=== PATIENT | female | born 1955 | race Caucasian/White ===

== ENCOUNTER 2020-02-24 09:52 | Outpatient (CLI) | payer MEDICARE, SELFPAY ==
--- NOTE | ~2020-02-24 | MM_ITS ---
EXAMINATION: MM screening josias BI w stuart HISTORY: Screening TECHNIQUE: Craniocaudal and mediolateral oblique 3-D tomosynthesis images were obtained and synthetic 2-D images were generated. CAD analysis was submitted and interpreted. COMPARISON: Comparison to multiple prior studies sequentially, with oldest reviewed study dated 08/07. BREAST PARENCHYMAL COMPOSITION: There are scattered areas of fibroglandular density. FINDINGS: There is no evidence of suspicious mass, calcification, or architectural distortion to sugg est malignancy in either breast. There has been no suspicious interval change. IMPRESSION: 1. No mammographic evidence of malignancy. 2. Recommend routine screening mammography in one year. BI-RADS Category 1: Negative Reviewed, dictated and finalized at location A.
== END 2020-02-24 09:53 | disposition home or self-care (01) ==
PROVIDERS: PCP Family Medicine; Visit Provider Family Medicine
DX: Z12.31 Encounter for screening mammogram for malignant neoplasm of breast (principal)
CPT/HCPCS: 77063; 77067

== ENCOUNTER → 2020-04-08 15:32 | Outpatient (REF) | payer MEDICARE, SELFPAY | LOC: ANHLAB 15:32 | PROVIDERS: PCP Family Medicine; Visit Provider Nurse Practitioner | DX: D22.5 Melanocytic nevi of trunk (principal) | CPT/HCPCS: 88305; 88342 ==

== ENCOUNTER 2020-07-28 13:42 | Outpatient (CLI) | payer MEDICARE, SELFPAY ==
--- NOTE | ~2020-07-28 | CT_ITS ---
EXAMINATION: CT lung screening EXAM DATE: 07/28/2020 14:28 INDICATION: Personal history of nicotine dependence. TECHNIQUE: Spiral low dose CT of the chest without contrast. Axial, coronal and sagittal images were reviewed. The dose-length product (DLP) for this examination was 64.29 mGy-cm. The exposure was ta ilored according to patient size (auto mA exposure control), and iterative reconstruction (ASIR) was used as additional dose reduction technique. Comparison is made to prior examination from 10/21/2018. FINDINGS: There is mild emphysema and moderate hyperinflation. Small amount of endobronchial opacit y in right apical subsegmental bronchi, unchanged and probably endobronchial debris. New small amount of opacity in right lower lobe posterior subsegmental bronchi also most likely mucous. There is no mediastinal, hilar or axillary lymphadenopathy. There are no pleural or pericardial effusions. Th ere is no pneumothorax. Heart normal in size. No evidence of coronary arterial calcification. Upper abdomen is unremarkable. There is thoracic spondylosis without osteoblastic or osteolytic les ions identified. IMPRESSION: Lung-RADS category 1, negative (<1%chance of malignancy); recommend continued LDCT screen ing in 1 year. Reviewed, dictated and finalized at location B. ER IMPRESSION: Lung-RADS category 1, negative (<1%chance of malignancy); recommend continued LDCT screening in 1 year.
== END 2020-07-28 13:43 | disposition home or self-care (01) ==
PROVIDERS: PCP Family Medicine; Visit Provider Physician Assistant
DX: Z12.2 Encounter for screening for malignant neoplasm of respiratory organs (principal); Z87.891 Personal history of nicotine dependence
CPT/HCPCS: 71271

== ENCOUNTER 2020-10-05 14:03 | Outpatient (CLI) | payer MEDICARE, SELFPAY ==
--- NOTE | ~2020-10-05 | US_ITS ---
EXAMINATION: US soft tissue head and neck EXAM DATE: 10/05/2020 14:35 INDICATION: Goiter. TECHNIQUE: Multiple grayscale and Doppler images of the symptomatic neck region were obtained (by a t echnologist who performed the scan) and subsequently reviewed. Individual thyroid nodules and recomm endations may be reported in accordance with TI-RADS system as designated by the 2017 ACR White Paper TI-RADS committee. There is no prior study for comparison. FINDINGS: The right there are lobe measures 3.9 x 1.4 x 1.9 cm, the left measuring 4.3 x 1.3 x 1.2 cm. These me asurements are within normal size limits. There is diffusely heterogeneous thyroid parenchyma with hy pervascular parenchyma. No sizable focal thyroid nodule or other mass in the region identified. IMPRESSION: Heterogeneous hypervascular thyroid parenchyma within normal size limits. Reviewed, dictated and finalized at location A. IMPRESSION: Heterogeneous hypervascular thyroid parenchyma within normal size l imits.
== END 2020-10-05 14:04 | disposition home or self-care (01) ==
PROVIDERS: PCP Family Medicine; Visit Provider Internal Medicine Endocrinology, Diabetes & Metabolism
DX: E03.9 Hypothyroidism, unspecified (principal); M81.0 Age-related osteoporosis without current pathological fracture
CPT/HCPCS: 76536

== ENCOUNTER 2020-11-01 12:52 | Outpatient (CLI) | payer MEDICARE, SELFPAY ==
--- NOTE | ~2020-11-01 | DEXA_ITS ---
Bone Density Report Name: Arabella Zamora Age: 64 Sex: Female Ethnicity: White Date of : 1955 Indication: hyperparathyroidism; prior fracture; Referring Provider: Brendon, Marilee Agee Study: Bone densitometry was performed. Exam Date: November 01, 2020 Accession number: [id number] Bone Density: Region BMD T-score Z-score Classification Total Forearm (Left) 0.371 -3.8 -2.0 1/3 Forearm (Left) 0.478 -3.5 -1.8 UD Forearm (Left) 0.350 -1.2 0.1 World Health Organization criteria for BMD impression classify patients as: Normal (T-score at or above -1.0), Osteopenia (T-score between -1.0 and -2.5), or Osteoporosis (T-score at or below -2.5). Clinical Information Provided by Patient: Has had a low trauma fracture Smokes Is being treated for osteoporosis Has used the following medications: Fosamax (i.e. alendronate), Vitamin D, Calcium Has the following medical conditions: Hyperparathyroidism Patient maximum height was 66 Menopause Age: 49 No regular weight bearing exercise Does not regularly consume dairy products Drinks caffeinated beverages Onset of menses at age 11 Number of children 2 Impression: The patient has established osteoporosis, based on the Left Third Radius T-score and the existence of a prior fracture. The patient has risk factors, including: smoking, previous fracture. Discussion: It is important to ask patients whether they are taking their medications and to encourage continued and appropriate compliance with their osteoporosis therapies to reduce fracture risk. It is also important to review their risk factors and encourage appropriate calcium and vitamin D intakes, exercise, fall prevention and other lifestyle measures. Follow-Up: Consider a repeat BMD and Vertebral Fracture Assessment (VFA) exam in 2 years or sooner if medically necessary, to reassess this patient's status. Reported by: [facility] on 11/01/2020 1:58:00 PM. Reviewed, dictated and finalized at location ANakia FREIRE
--- NOTE | ~2020-11-01 | DEXA_ITS ---
Bone Density Report Name: Arabella Zamora Age: 64 Sex: Female Ethnicity: White Date of : 1955 Indication: postmenopausal osteoporosis; monitoring treatment; hyperparathyroidism; prior fracture; Referring Provider: Brendon, Marilee Agee Study: Bone densitometry was performed. Exam Date: November 01, 2020 Accession number: [id number] Bone Density: Region BMD T-score Z-score Classification AP Spine (L1-L4) 0.712 -3.0 -1.2 Osteoporosis Femoral Neck (Left) 0.468 -3.4 -1.9 Osteoporosis Total Hip (Left) 0.755 -1.5 -0.3 Osteopenia Total Hip Bilateral Avg 0.705 -2.0 -0.7 Osteopenia Femoral Neck (Right) 0.428 -3.8 -2.2 Osteoporosis Total Hip (Right) 0.654 -2.4 -1.1 Osteopenia World Health Organization criteria for BMD impression classify patients as: Normal (T-score at or above -1.0), Osteopenia (T-score between -1.0 and -2.5), or Osteoporosis (T-score at or below -2.5). 10-year Fracture Risk: FRAX not reported because: Some T-score for Spine Total or Hip Total or Femoral Neck at or below -2.5 Treated for osteoporosis Previous Exams: Region Exam Age BMD T-score BMD Change BMD Change Date g/cm2 vs Baseline vs Previous AP Spine(L1-L4) 11/01/2020 64 0.712 -3.0 0.008(1.1%) 0.008(1.1%) 10/11/2017 61 0.704 -3.1 Total Hip(Left) 11/01/2020 64 0.755 -1.5 0.015(2.1%) 0.015(2.1%) 10/11/2017 61 0.740 -1.7 Total Hip(Right) 11/01/2020 64 0.654 -2.4 -0.014(-2.1%) -0.014(-2.1%) 10/11/2017 61 0.668 -2.2 *Denotes significance at 95% confidence level, LSC for AP Spine = 0.022 g/cm2, LSC for Total Hip = 0.027 g/cm2 Clinical Information Provided by Patient: Has had a low trauma fracture Smokes Is being treated for osteoporosis Has used the following medications: Fosamax (i.e. alendronate), Vitamin D, Calcium Has the following medical conditions: Hyperparathyroidism Patient maximum height was 66 Menopause Age: 49 No regular weight bearing exercise Does not regularly consume dairy products Drinks caffeinated beverages Onset of menses at age 11 Number of children 2 Impression: The patient has established osteoporosis, based on the Right Femoral Neck T-score and the existence of a prior fracture. The patient has risk factors, including: smoking, previous fracture. No significant bone loss was observed. Discussion: PATIENT UNDER TREATMENT WITH NO SIGNIFICANT BMD LOSS SINCE LAST EXAM. In an untreated patient, BMD typically declines with age. A lack of dec
== END 2020-11-01 12:53 | disposition home or self-care (01) ==
PROVIDERS: PCP Family Medicine; Visit Provider Internal Medicine Endocrinology, Diabetes & Metabolism
DX: M81.0 Age-related osteoporosis without current pathological fracture (principal)
CPT/HCPCS: 77080; 77081

== ENCOUNTER 2021-03-15 12:43 | Outpatient (CLI) | payer MEDICARE, SELFPAY ==
--- NOTE | ~2021-03-15 | MM_ITS ---
EXAMINATION: MM screening [facility] BI w stuart HISTORY: Screening mammogram TECHNIQUE: Craniocaudal and mediolateral oblique 3-D tomosynthesis images were obtained and synthetic 2-D images were generated. CAD analysis was submitted and interpreted. COMPARISON: 02/24/2020 10/18/2018, 10/11/2017 BREAST PARENCHYMAL COMPOSITION: The breasts are almost entirely fatty. FINDINGS: RIGHT BREAST: A mass is present in the middle third of the lower-outer breast approximately 3.8 cm fr om the nipple. LEFT BREAST: There is no evidence of suspicious mass, calcification, or architectural distortion to s uggest malignancy. There has been no significant interval change. IMPRESSION: 1. Right breast mass. 2. Additional mammographic views and possible breast ultrasound are recommended. BI-RADS Category 0: Incomplete: Needs additional imaging evaluation. Reviewed, dictated and finalized at location A. IMPRESSION: 1. Right breast mass. 2. Additional mammographic views and possible breast ultrasound are recommended . BI-RADS Category 0: Incomplete: Needs additional imaging evaluation.
== END 2021-03-15 12:44 | disposition home or self-care (01) ==
LOC: ANHIMG 12:48
PROVIDERS: PCP Family Medicine; Visit Provider Family Medicine
DX: Z12.31 Encounter for screening mammogram for malignant neoplasm of breast (principal); R92.8 Other abnormal and inconclusive findings on diagnostic imaging of breast
CPT/HCPCS: 77063; 77067

== ENCOUNTER 2021-03-25 13:48 | Outpatient (CLI) | payer MEDICARE, SELFPAY ==
--- NOTE | ~2021-03-25 | MMUS_ITS ---
EXAMINATION: MM diagnostic josias RT w stuart, US breast RT limited HISTORY: Follow-up right breast mass TECHNIQUE: Additional 3-D tomosynthesis images of the right breast were performed and synthetic 2-D i mages were generated. CAD analysis was submitted and interpreted. High resolution Limited right breas t ultrasound was performed. COMPARISON: Comparison to multiple prior studies sequentially, with oldest reviewed study dated 09/14. BREAST PARENCHYMAL COMPOSITION: BREAST PARENCHYMAL COMPOSITION: There are scattered areas of fibroglandular density. FINDINGS: MAMMOGRAPHIC FINDINGS: There is a mass in the lower outer quadrant of the right breast anteriorly measuring approximately 4 mm. No suspicious calcifications or architectural distortion. ULTRASOUND: Limited right breast ultrasound: At 8:00, near the nipple there is a 4 mm cyst corresponding to the m ammographic abnormality. There are multiple additional cysts of the right breast, largest in the suba reolar location at 6:00 measuring 1.4 cm maximum dimension. No solid masses. IMPRESSION: 1. No evidence for malignancy in the right breast. Benign findings. 2. Routine yearly screening mammogram and regular clinical breast examination are recommended. BI-RADS Category 2: Benign finding(s). Reviewed, dictated and finalized at location A. IMPRESSION: 1. No evidence for malignancy in the right breast. Benign findings. 2. Routine yearly screening mammogram and regular clinical breast examination a re recommended. BI-RADS Category 2: Benign finding(s).
== END 2021-03-25 13:49 | disposition home or self-care (01) ==
LOC: ANHIMG 13:50
PROVIDERS: PCP Family Medicine; Visit Provider Family Medicine
DX: R92.8 Other abnormal and inconclusive findings on diagnostic imaging of breast (principal)
CPT/HCPCS: 76642; 77061; 77065; G0279

== ENCOUNTER 2021-11-02 12:23 | Outpatient (CLI) | payer MEDICARE, SELFPAY ==
--- NOTE | ~2021-11-02 | CT_ITS ---
EXAMINATION: CT lung screening DATE: 11/02/2021 13:10 INDICATION: Personal history of nicotine dependence, current smoker with 30 pack year history TECHNIQUE: Computed tomography (CT) of the chest was performed without intravenous contrast. The dose -length product (DLP) was 61.85 mGy-cm. Automated exposure control and iterative reconstruction techn [employer] were employed. COMPARISON: 07/28/2020 FINDINGS: There is moderate emphysema. No suspicious pulmonary nodules are identified. There is no pl eural effusion or pneumothorax. No focal airspace opacities are identified. No pathologically enlarge d thoracic lymph nodes are identified. The heart size is normal. IMPRESSION: 1. Lung-RADS category 1: Negative. Continue annual screening with noncontrast low-dose chest CT in 12 months. Reviewed, dictated and finalized at location A. IMPRESSION: 1. Lung-RADS category 1: Negative. Continue annual screening with noncontrast l ow-dose chest CT in 12 months.
== END 2021-11-02 12:24 | disposition home or self-care (01) ==
PROVIDERS: PCP Family Medicine; Visit Provider Physician Assistant
DX: Z12.2 Encounter for screening for malignant neoplasm of respiratory organs (principal); Z87.891 Personal history of nicotine dependence
CPT/HCPCS: 71271

== ENCOUNTER → 2021-11-10 10:14 | Outpatient (CLI) | payer MEDICARE, SELFPAY ==
--- NOTE | ~2021-11-10 | DEXA_ITS ---
Bone Density Report Name: LASHA DIAZ Age: 65 Sex: Female Ethnicity: White Date of : 1955 Indication: postmenopausal; screening for osteoporosis; prior fracture; Referring Provider: Brendon, Marilee Agee Study: Bone densitometry was performed. Exam Date: November 10, 2021 Accession number: [id number] Bone Density: Region BMD T-score Z-score Classification AP Spine (L1-L4) 0.718 -3.0 -1.1 Osteoporosis Femoral Neck (Left) 0.482 -3.3 -1.7 Osteoporosis Total Hip (Left) 0.717 -1.8 -0.5 Osteopenia Femoral Neck (Right) 0.464 -3.5 -1.9 Osteoporosis Total Hip (Right) 0.670 -2.2 -0.9 Osteopenia Total Hip Mean 0.694 -2.0 -0.7 Osteopenia World Health Organization criteria for BMD impression classify patients as: Normal (T-score at or above -1.0), Osteopenia (T-score between -1.0 and -2.5), or Osteoporosis (T-score at or below -2.5). 10-year Fracture Risk: FRAX not reported because: Some T-score for Spine Total or Hip Total or Femoral Neck at or below -2.5 Prior hip or vertebral fracture Clinical Information Provided by Patient: Have had a previous hip or vertebral fracture Has had a low trauma fracture Smokes Patient maximum height was 66 Menopause Age: 49 Drinks caffeinated beverages Onset of menses at age 11 Number of children 2 Impression: The patient has established osteoporosis, based on the Right Femoral Neck T-score and the existence of a prior fracture. The patient has risk factors, including: smoking, previous fracture. Discussion: HIGH RISK OF FRACTURE. BONE DENSITY IS UNDESIRABLY LOW AT ONE OR MORE SKELETAL SITES, CONSISTENT WITH POSTMENOPAUSAL OSTEOPOROSIS. This patient's lowest T-score, in a patient who has previously fractured, meets the World Health Organization's (WHO) criteria for severe osteoporosis. In untreated patients, the risk of osteoporotic fracture increases approximately two-fold for each 1.0 SD decrease in T-score. Low bone density is not the only risk factor for fracture; also consider factors such as patient's age, frailty or poor health, risk of falling, risk of injury, previous osteoporotic fracture, family history of osteoporosis, cigarette smoking, low body weight, etc. Not everyone with low bone mineral density has osteoporosis; osteomalacia and other metabolic bone disorders should also be considered. Patients who have osteoporosis should be evaluated for specific diseases and conditions (secondary causes) that may cause or contribute to bone loss. The [place] [employer] Endocrinologists (AACE) and National Osteoporosis Foundation (NOF) recommend pharmacologic intervention for all postmenopausal women with a previous hip or vertebral fracture and a T-score in this range. The patient should follow a healthful lifestyle (good nutrition with adequate calcium and vitamin D, an
== END ==
PROVIDERS: PCP Family Medicine; Visit Provider Internal Medicine Endocrinology, Diabetes & Metabolism
DX: M81.0 Age-related osteoporosis without current pathological fracture (principal)
CPT/HCPCS: 77080

== ENCOUNTER 2022-04-26 09:48 | Outpatient (CLI) | payer MEDICARE, SELFPAY ==
--- NOTE | ~2022-04-26 | MM_ITS ---
EXAMINATION: MM screening josias BI w stuart HISTORY: Screening TECHNIQUE: Craniocaudal and mediolateral oblique 3-D tomosynthesis images were obtained and synthetic 2-D images were generated. CAD analysis was submitted and interpreted. COMPARISON: Comparison to multiple prior studies sequentially, with oldest reviewed study dated 09/20. BREAST PARENCHYMAL COMPOSITION: There are scattered areas of fibroglandular density. FINDINGS: There is no evidence of suspicious mass, calcification, or architectural distortion to sugg est malignancy in either breast. There has been no suspicious interval change. IMPRESSION: 1. No mammographic evidence of malignancy. 2. Recommend routine screening mammography in one year. BI-RADS Category 1: Negative Reviewed, dictated and finalized at location A.
== END 2022-04-26 09:49 | disposition home or self-care (01) ==
PROVIDERS: PCP Family Medicine; Visit Provider Family Medicine
DX: Z12.31 Encounter for screening mammogram for malignant neoplasm of breast (principal)
CPT/HCPCS: 77063; 77067

== ENCOUNTER 2023-03-27 14:32 | Outpatient (CLI) | payer MEDICARE, SELFPAY ==
--- NOTE | ~2023-03-27 | CT_ITS ---
CT Scan of the Chest without Contrast: Clinical Indication: Lung cancer screening, personal history of nicotine dependence Technique: Contiguous sections were acquired throughout the chest without intravenous contrast. Dose reduction technique was used on this scan by utilizing automated exposure control and iterative recon struction technique. The dose-length product (DLP) was 69.52 mGy-cm. COMPARISON: 11/02/2021, 07/28/2020 Findings: There is no evidence of any significant mediastinal, hilar or axillary lymphadenopathy. The mediastin al soft tissues appear normal. There is no evidence of pleural or pericardial effusion. There is linear scarring at the left lung base. No pulmonary nodules or infiltrates are noted. Mild e mphysema present. Images through the upper abdomen reveal no abnormalities. Chronic compression deformity of L2 noted. Impression: Lung RADS 1: Negative. 12 month follow-up screening CT advised. Reviewed, dictated and finalized at [facility]. Impression: Lung RADS 1: Negative. 12 month follow-up screening CT advised.
== END 2023-03-27 14:33 | disposition home or self-care (01) ==
PROVIDERS: PCP Family Medicine; Visit Provider Nurse Practitioner
DX: Z12.2 Encounter for screening for malignant neoplasm of respiratory organs (principal); Z87.891 Personal history of nicotine dependence
CPT/HCPCS: 71271

== ENCOUNTER 2023-05-12 12:34 | Emergency (ER) | payer MEDICARE, SELFPAY ==
[2023-05-12 13:08] VITALS: BP 137/92; PULSE 77; RESP 16; TEMP 36.5; O2SAT 97
--- NOTE | 2023-05-12 13:29 | ED.EAR ---
HPI - Ear Problem General Chief complaint: Ear Stated complaint: L EARACHE Time Seen by Provider: 05/12/23 13:29 Source: patient Mode of arrival: ambulatory Limitations: no limitations History of Present Illness HPI Narrative: 67-year-old female presented for complaint of left ear pressure, muffled hearing and popping sounds over the past week. She states symptoms started while on an airplane. She started using Flonase a few days ago with minimal relief. Patient states [place] few months [place] Flonase which resolved the symptoms at the time. Denies ear pain, tinnitus, ear drainage, dizziness, nausea, vomiting, fevers or chills. MD Complaint: ear pain Related Data Home Medications Medication Instructions Recorded Confirmed cholecalciferol (vitamin D3) 75 75 mcg PO DAILY 02/14/22 05/12/23 mcg (3,000 unit) tablet denosumab 60 mg/mL subcutaneous 60 mg subcut [id number] 03/15/23 05/12/23 syringe (Prolia) Allergies Allergy/AdvReac Type Severity Reaction Status Date / Time Iodinated Contrast Media Allergy Mild Hives Verified 05/12/23 13:02 ioversol Allergy Unknown Unknown Verified 05/12/23 13:02 Review of Systems Review of Systems: CONSTITUTIONAL: Denies malaise, chills, or fever. EYES: Denies visual changes, redness, or discharge. ENT: Denies rhinorrhea, congestion, sinus pain, and sore throat. Reports ear popping and hearing changes CARDIOVASCULAR: Denies chest pain, palpitations, or edema. RESPIRATORY: Denies cough or dyspnea. GASTROINTESTINAL: Denies abdominal pain, nausea, vomiting, diarrhea SKIN: Denies rash or itching. MUSCULOSKELETAL: Denies myalgia. NEUROLOGIC: Denies headache. All systems reviewed & are unremarkable except as noted in HPI and below PMFSH Past Medical History Medical History Cyst (~1971) Surgical History Surgical History H/O breast biopsy (~1981) H/O colonoscopy (~12/2015) History of biopsy of bladder (~1972) History of lumpectomy (~01/2010) Family History Family History Mother Family history of malignant melanoma Patient's mother is , Onset Age: 68 Sibling Acute myocardial infarction, Onset Age: 59 Family history of cardiovascular disease Hypertension Family history of elevated blood lipids Family history of coronary artery disease Grandparent Carcinoma of colon Family history of coronary artery disease Father Family history of malignant neoplasm of kidney Social History Social History Smoking status: Current every day smoker Tobacco type: cigarettes Alcohol intake: never Substance use: never Substance use type: does not use Lack of Transportation: No Lack of Food: Never True Current Housing: I Have Housing Concerned About Future Housing: No Difficulty Paying Gas/Electric Bills: No Difficulty Paying for Meds: No Currently Unemployed: No Education: Bachelor's Degree Difficulty w/ Childcare or Family Care: No Comments At time of signature, agree with nursing past medical, surgical, social and family history. There is no relevant family history pertinent to the presenting complaint Exam Narrative: GENERAL: Well-appearing, and in no acute distress. HEAD: Normocephalic EYES: PERRLA, conjunctivae clear ENT: Mucous membranes moist. right TM pearly ayala with dull light reflex; left TM with clear fusion, bulging and intact, no erythema, no tragal tenderness. Oropharynx not erythematous without lesions. no drooling, no hoarseness, no trismus, uvula midline. NECK: Supple. No lymphadenopathy CHEST: Clear to auscultation, breath sounds equal. No wheezing, rhonchi, rales, or stridor. No respiratory distress, speaks in full sentences. HEART: Regular rate and rhyth
== END 2023-05-12 13:48 | disposition home or self-care (01) ==
PROVIDERS: Emergency Provider Nurse Practitioner Family; PCP Family Medicine
DX: H65.02 Acute serous otitis media, left ear (principal); F17.210 Nicotine dependence, cigarettes, uncomplicated
CPT/HCPCS: 99213; G0463

== ENCOUNTER 2023-07-17 14:17 | Outpatient (CLI) | payer MEDICARE, SELFPAY ==
--- NOTE | ~2023-07-17 | MM_ITS ---
EXAMINATION: MM screening [facility] BI w stuart HISTORY: Screening mammogram TECHNIQUE: Craniocaudal and mediolateral oblique 3-D tomosynthesis images were obtained and synthetic 2-D images were generated. CAD analysis was submitted and interpreted. COMPARISON: 04/26/2022, 03/25/2021, 03/15/2021, 02/24/2020 BREAST PARENCHYMAL COMPOSITION: There are scattered areas of fibroglandular density. FINDINGS: RIGHT BREAST: There are waxing and waning right breast masses, consistent with benign findings. No strickland spicious mass, calcification, or architectural distortion are identified to suggest malignancy. There has been no suspicious interval change. LEFT BREAST: There is a 4 mm mass in the middle third of the lower breast at the 6:00 location, 7 cm from the nipple. IMPRESSION: 1. Left breast mass. 2. Additional mammographic views and possible breast ultrasound are recommended. BI-RADS Category 0: Incomplete: Needs additional imaging evaluation. Reviewed, dictated and finalized at location A. [employer]OUNT TECHNOLOGY OPERATOR IMPRESSION: 1. Left breast mass. 2. Additional mammographic views and possible breast ultrasound are recommended . BI-RADS Category 0: Incomplete: Needs additional imaging evaluation.
== END 2023-07-17 14:18 | disposition home or self-care (01) ==
PROVIDERS: PCP Family Medicine; Visit Provider Nurse Practitioner
DX: Z12.31 Encounter for screening mammogram for malignant neoplasm of breast (principal); R92.8 Other abnormal and inconclusive findings on diagnostic imaging of breast
CPT/HCPCS: 77063; 77067

== ENCOUNTER 2023-08-16 10:43 | Outpatient (CLI) | payer MEDICARE, SELFPAY ==
--- NOTE | ~2023-08-16 | MMUS_ITS ---
EXAMINATION: MM diagnostic josias LT w stuart, US breast LT limited HISTORY: Follow-up left breast mass TECHNIQUE: Additional 3-D tomosynthesis images of the left breast were performed and synthetic 2-D im ages were generated. CAD analysis was submitted and interpreted. High resolution Limited left breast ultrasound was performed. COMPARISON: Comparison to multiple prior studies sequentially, with oldest reviewed study dated 10/18. BREAST PARENCHYMAL COMPOSITION: Not dense: There are scattered areas of fibroglandular density. FINDINGS: MAMMOGRAPHIC FINDINGS: There is a persistent circumscribed 5 mm mass in the lower central aspect of the left breast. There a re coarse benign calcifications of the left breast. ULTRASOUND: Limited left breast ultrasound: There is an echogenic focus at 9:00, 5 cm from the nipple with risk professional ior shadowing, consistent with calcification. At 8:00, 4 cm from the nipple there is a 5 mm cyst. At 7:00, 3 cm from the nipple, there is a 5 mm cyst. At 6:00, 7 cm from the nipple, there is a 6 mm cyst . IMPRESSION: 1. No evidence for malignancy in the left breast. 2. Routine yearly screening mammogram and regular clinical breast examination are recommended. BI-RADS Category 2: Benign finding(s). Reviewed, dictated and finalized at location A. BAKER MACHINE IMPRESSION: 1. No evidence for malignancy in the left breast. 2. Routine yearly screening mammogram and regular clinical breast examination a re recommended. BI-RADS Category 2: Benign finding(s).
== END 2023-08-16 10:44 | disposition home or self-care (01) ==
PROVIDERS: PCP Family Medicine; Visit Provider Nurse Practitioner
DX: N63.20 Unspecified lump in the left breast, unspecified quadrant (principal); R92.8 Other abnormal and inconclusive findings on diagnostic imaging of breast
CPT/HCPCS: 76642; 77061; 77065; G0279

== ENCOUNTER 2023-11-13 11:08 | Outpatient (CLI) | payer MEDICARE, SELFPAY ==
--- NOTE | ~2023-11-13 | DEXA_ITS ---
Bone Density Report Name: LASHA DIAZ Age: 67 Sex: Female Ethnicity: White Date of : 1955 Indication: postmenopausal osteoporosis; prior fracture; Referring Provider: YESENIA ZARATE Study: Bone densitometry was performed. Exam Date: November 13, 2023 Accession number: [id number] Bone Density: Region BMD T-score Z-score Classification AP Spine(L1-L4) 0.769 -2.5 -0.5 Osteoporosis Femoral Neck (Left) 0.563 -2.6 -0.8 Osteoporosis Total Hip (Left) 0.780 -1.3 0.1 Osteopenia Femoral Neck (Right) 0.485 -3.3 -1.6 Osteoporosis Total Hip (Right) 0.745 -1.6 -0.2 Osteopenia Total Hip Mean 0.762 -1.5 -0.1 Osteopenia World Health Organization criteria for BMD impression classify patients as: Normal (T-score at or above -1.0), Osteopenia (T-score between -1.0 and -2.5), or Osteoporosis (T-score at or below -2.5). 10-year Fracture Risk: FRAX not reported because: Some T-score for Spine Total or Hip Total or Femoral Neck at or below -2.5 Prior hip or vertebral fracture Previous Exams: Region Exam Age BMD T-score BMD Change BMD Change Date g/cm2 vs Baseline vs Previous AP Spine (L1-L4) 11/13/2023 67 0.769 -2.5 0.065 (9.2%)* 0.057 (8.0%)* 11/01/2020 64 0.712 -3.0 0.008 (1.1%) 0.008 (1.1%) 10/11/2017 61 0.704 -3.1 Total Hip(Left) 11/13/2023 67 0.780 -1.3 0.040 (5.4%)* 0.024 (3.2%) 11/01/2020 64 0.755 -1.5 0.015 (2.1%) 0.015 (2.1%) 10/11/2017 61 0.740 -1.7 Total Hip(Right) 11/13/2023 67 0.745 -1.6 0.077 (11.6%)* 0.091 (14.0%)* 11/01/2020 64 0.654 -2.4 -0.014 (-2.1%) -0.014 (-2.1%) 10/11/2017 61 0.668 -2.2 *Denotes significance at 95% confidence level, LSC for AP Spine = 0.022 g/cm2, LSC for Total Hip = 0.027 g/cm2 Clinical Information Provided by Patient: Have had a previous hip or vertebral fracture Has had a low trauma fracture Smokes Has used the following medications: Prolia (i.e. denosumab), Calcium Patient maximum height was 66.0 Menopause Age: 49 Does not regularly consume dairy products Drinks caffeinated beverages Onset of menses at age 11 Number of children 2 Impression: The patient has established osteoporosis, based on the Right Femoral Neck T-score and the existence of a prior fracture. The patient has risk factors, including: smoking, previous fracture. No significant bone loss was observed. Discussion: HIGH RISK OF FRACTURE. BONE DENSITY IS UNDESIRABLY LOW AT ONE OR MO
== END 2023-11-13 11:09 ==
LOC: ANHIMG 03-18 11:08
PROVIDERS: PCP Family Medicine; Visit Provider Internal Medicine Endocrinology, Diabetes & Metabolism
DX: M81.0 Age-related osteoporosis without current pathological fracture (principal); E03.9 Hypothyroidism, unspecified; M85.852 Other specified disorders of bone density and structure, left thigh; M85.851 Other specified disorders of bone density and structure, right thigh
CPT/HCPCS: 77080

== ENCOUNTER 2024-02-12 15:15 | Outpatient (RCR) | payer MEDICARE, SELFPAY ==
--- NOTE | 2024-01-08 16:04 | OPREHPOC ---
Outpatient Therapy Plan of Care This is a Multidisciplinary Plan of Care that may contain components documented by all disciplines (PT, OT, and ST.) PT Problem 1 PT Problem #1 Knowledge Deficit PT Goal 1 Goal Marion with HEP Target Visit 4 PT Goal 1 Goal Patient will report no increased pain with reaching behind back for bra removal and dressing Target Visit 8 PT Goal 2 Goal Patient will demonstrate 70 degrees of right shoulder internal rotation for full functional shoulder mobility Target Visit 8 PT Goal 1 Goal Improve R shoulder external rotation strength to 5 /5 to improve shoulder stability for ADL performance Target Visit 8
--- NOTE | 2024-01-08 16:04 | PTOPEVAL1 ---
Assessment and note entered by Yuriy Swain, PT Evaluation Information Assessment Status Evaluation ICD-10 Condition Codes (PT) M25.511 Onset November 2023 Subjective Information Reports that she started a steroid back in November. Pain is in R shoulder and occasionally radiated to lateral elbow. Denies any pain at night or with numbness and tingling. Pressure on the shoulder still hurts. She is R handed. Believe that it was first aggravated when she was paining a brick foundation and did a lot of gardening. She is in an exercise class and has avoided use of arms and overhead activity. Reported Pain Level Pain Score 0: Self Report Assessment PT Clinical Summary Patient presents with radicular pain consistent with capsular tendonitis and impingement. Patient has very tight posterior rotator cuff and minor weakness in shoulder stabilization musculature. Patient will benefit from skilled therapy to improve gross shoulder stabilization and improve capsular mobility to reduce pain with self care. Plan of Care Interventions Electrical Stimulation,Hot Pack/Cold Pack,Manual Therapy,Neuro Re-education,Therapeutic Activities, Therapeutic Exercise PT Services Indicated Yes Treatment Frequency and 1-2x/week for 8 visits Duration These treatments will address the objective and functional deficits as defined above. The patient will be advanced safely and appropriately in order for the patient to progress towards his/her prior level of function. Additional exercises will be introduced and as well as a comprehensive home exercise program upon discharge, if needed, ?to ensure carryover of functional gains achieved in the clinic. This treatment plan has been reviewed and agreement upon by the patient.
--- NOTE | 2024-02-12 16:48 | PTOPDC ---
Assessment and note entered by Yuriy Swain, PT Evaluation Information Assessment Status Discharge ICD-10 Condition Codes (PT) M25.511 Onset November 2023 Subjective Information Reports that overall she is significantly better. She feels she is able to work the garden and stretch the front of the shoulder without pain at this point. No concerns with HEP and has been doing it consistently. Reported Pain Level Pain Score 0: Self Report Assessment PT Clinical Summary Patient has met all goals for therapy and is suitable for discharge at this time to [facility]. No concerns with HEP at this time. Plan of Care PT Services Indicated D/C to HEP
--- NOTE | 2024-02-13 09:52 | PCPTNOTE ---
Patient was canceled 02/06/24 due to therapist out with illness.
== END 2024-02-13 10:29 | disposition home or self-care (01) ==
LOC: ANHGOSHPT 15:15
PROVIDERS: PCP Family Medicine; Visit Provider Nurse Practitioner
DX: M25.511 Pain in right shoulder (principal)
CPT/HCPCS: 97110; 97112; 97140; 97161; 97530

== ENCOUNTER 2024-03-31 10:13 | Outpatient (CLI) | payer MEDICARE, SELFPAY ==
--- NOTE | ~2024-03-31 | CT_ITS ---
CT Scan of the Chest without Contrast: Clinical Indication: Lung cancer screening, nicotine dependence Technique: Contiguous sections were acquired throughout the chest without intravenous contrast. Dose reduction technique was used on this scan by utilizing automated exposure control and iterative recon struction technique. The dose-length product (DLP) was 89.56 mGy-cm. COMPARISON: 03/27/2023 Findings: There is no evidence of any significant mediastinal, hilar or axillary lymphadenopathy. The mediastin al soft tissues appear normal. There is no evidence of pleural or pericardial effusion. The lungs are clear. No pulmonary nodules or infiltrates are noted. Mild emphysema. Images through the upper abdomen reveal no abnormalities. Chronic L2 compression deformity noted. Impression: Lung RADS 1: Negative. 12 month follow-up screening CT advised. Reviewed, dictated and finalized at [facility]. Impression: Lung RADS 1: Negative. 12 month follow-up screening CT advised.
== END 2024-03-31 10:14 | disposition home or self-care (01) ==
LOC: GOSHIMG 10:14
PROVIDERS: PCP Family Medicine; Visit Provider Nurse Practitioner
DX: Z12.2 Encounter for screening for malignant neoplasm of respiratory organs (principal); Z87.891 Personal history of nicotine dependence
CPT/HCPCS: 71271

== ENCOUNTER 2024-04-14 12:13 | Emergency (ER) | payer MEDICARE, SELFPAY ==
[2024-04-14 12:14] VITALS: BP 155/95; PULSE 74; RESP 16; TEMP 36.2; O2SAT 95
--- NOTE | 2024-04-14 12:25 | ED.URI ---
HPI - URI/Sore Throat General Chief Complaint: Upper Respiratory Infection Stated Complaint: Sinus Infection Symptoms Time Seen by Provider: 04/14/24 12:25 Source: patient Mode of arrival: ambulatory Limitations: no limitations History of Present Illness HPI Narrative: 68 yo F presents with c/o cough, chest congestion, fatigue to 1 wk. Afebrile. Pt is a current everyday smoker. Denies COPD but does state she uses inhaler sometimes. Has used inhaler a few times past couple of days. Today feels worse, coughing more and hears herself wheezing. All systems reviewed and negative except as noted above. Related Data Home Medications Medication Instructions Recorded Confirmed denosumab 60 mg/mL subcutaneous 60 mg subcut [id number] 03/15/23 04/14/24 syringe (Prolia) calcium 200 mg (as 2 tablet PO BID 11/20/23 04/14/24 citrate)-vitamin D3 6.25 mcg (250 unit) tablet (Citracal-D3 Petites) cholecalciferol (vitamin D3) 50 50 mcg PO DAILY 11/20/23 04/14/24 mcg (2,000 unit) chewable tablet Allergies Allergy/AdvReac Type Severity Reaction Status Date / Time Iodinated Contrast Media Allergy Mild Hives Verified 04/14/24 12:21 Review of Systems Review of Systems: CONSTITUTIONAL: Denies fever, chills, or sweats., fatigue EYES: Denies visual changes, redness, or discharge. ENT: Denies rhinorrhea, congestion, sore throat, or otalgia. CARDIOVASCULAR: Denies chest pain, palpitations, or edema. RESPIRATORY: Reports cough, chest congestion. Denies dyspnea. GASTROINTESTINAL: Denies abdominal pain, nausea, vomiting, or diarrhea. GENITOURINARY: Denies dysuria or hematuria. SKIN: Denies rash or itching. MUSCULOSKELETAL: Denies back pain, joint pain, or myalgia. NEUROLOGIC: Denies headache, numbness, or weakness. PSYCHIATRIC: Denies anxiety or depression. All other systems reviewed are negative, except as documented in HPI. [facility] Past Medical History Medical History (Updated 04/14/24 @ 12:31 by Liv Gustafson NP) Cyst (~1971) Surgical History Surgical History H/O breast biopsy (~1981) H/O colonoscopy (~12/2015) History of biopsy of bladder (~1972) History of lumpectomy (~01/2010) Family History Family History Mother Family history of malignant melanoma Patient's mother is , Onset Age: 68 Sibling Acute myocardial infarction, Onset Age: 59 Family history of cardiovascular disease Hypertension Family history of elevated blood lipids Family history of coronary artery disease Grandparent Carcinoma of colon Family history of coronary artery disease Father Family history of malignant neoplasm of kidney Social History Social History Years smoked: 40 Smoking status: Current every day smoker Tobacco type: cigarettes Alcohol intake: never Substance use: never Substance use type: does not use Lack of Transportation: No Lack of Food: Never True Current Housing: I Have Housing Concerned About Future Housing: No Difficulty Paying Gas/Electric Bills: No Difficulty Paying for Meds: No Currently Unemployed: No Education: Bachelor's Degree Difficulty w/ Childcare or Family Care: No Comments At time of signature, agree with nursing past medical, surgical, social and family history. There is no relevant family history pertinent to the presenting complaint. Exam Narrative: GENERAL: This is a well-nourished, well-developed patient, in no apparent distress. HEAD: normocephalic, atraumatic. EYES: PERRL. Sclera clear/white. Vision is grossly intact. EARS: External ears normal, auditory canals clear and without drainage, TMs normal without perforation. Hearing grossly intact. NOSE: External nose normal with no obvious nasal discharge, nares without redness, no rhinorrhea. THROAT: Mucous membranes moist, posterior
== END 2024-04-14 12:37 | disposition home or self-care (01) ==
PROVIDERS: Emergency Provider Nurse Practitioner Family; PCP Family Medicine
DX: J20.9 Acute bronchitis, unspecified (principal); F17.210 Nicotine dependence, cigarettes, uncomplicated
CPT/HCPCS: 99213; G0463

== ENCOUNTER 2024-07-22 10:10 | Outpatient (CLI) | payer MEDICARE, SELFPAY ==
--- NOTE | ~2024-07-22 | MM_ITS ---
EXAMINATION: MM screening josias BI w stuart HISTORY: Screening TECHNIQUE: Craniocaudal and mediolateral oblique 3-D tomosynthesis images were obtained and synthetic 2-D images were generated. CAD analysis was submitted and interpreted. COMPARISON: Comparison to multiple prior studies sequentially, with oldest reviewed study dated 06/2019. BREAST PARENCHYMAL COMPOSITION: Not dense: There are scattered areas of fibroglandular density. FINDINGS: There are new small masses centered in the lower outer quadrant of the right breast, anteri or third. The left breast is stable without evidence for malignancy. IMPRESSION: 1. New small right breast masses measuring 4 mm or less centered in the lower outer quadrant. 2. Additional mammographic views and possible breast ultrasound are recommended. BI-RADS Category 0: Incomplete: Needs additional imaging evaluation. Reviewed, dictated and finalized at location A. BUILDER IMPRESSION: 1. New small right breast masses measuring 4 mm or less centered in the lower o uter quadrant. 2. Additional mammographic views and possible breast ultrasound are recommended . BI-RADS Category 0: Incomplete: Needs additional imaging evaluation.
--- OUTSIDE RECORDS SUMMARY | 2024-07-22 11:02 | XMS_ITS | Referral Summary ---
Author Organization [facility] Address [address] [place] [id number] Care Team Providers Care Career Coach Name Role Phone Pcp, No Primary Care Provider Unavailabl e Allergies No known active allergies Medications Medication Sig Dispensed Refills Start Date End Date Status fluticasone-salmeter ol (ADVAIR) 250-50 MCG/DOSE AEPB Inhale 1 puff into the lungs two times daily. Active levothyroxine (SYNTHROID, LEVOTHROID) 75 MCG tablet Take 75 mcg by mouth daily. Active CALCIUM CARBONATE PO Take by mouth. Active amoxicillin (AMOXIL) 875 MG tabletIndications:Br onchitis Take 1 tablet by mouth 2 times daily. 20 tablet 0 03/03/2013 Active guaiFENesin-codeine (GUAIFENESIN AC) 100-10 MG/5ML syrupIndications:Bro nchitis Take 5 mLs by mouth 3 times daily as needed for Cough (mainly use in evenings due to drowsiness). 120 mL 0 03/03/2013 Active Active Problems No known active problems Social History Tobacco Use Types Packs/Day Years Used Date Smoking Tobacco: Every Day Cigarettes Tobacco Cessation:Counseling Given: Yes Alcohol Use Standard Drinks/Week Comments Not Asked 0 (1 standard drink = 0.6 oz pur e alcohol) Sex and Gender Information Value Date Recorded Sex Assigned at Not on file Gender Identity Not on file Sexual Orientation Not on file Last Filed Vital Signs Vital Sign Reading Time Taken Comments Blood Pressure 110/78 03/03/2013 12:05 PM CDT Pulse 84 03/03/2013 12:05 PM CDT Temperature 36.6 ??C (97.8 ??F) 03/03/2013 12:05 PM C DT Respiratory Rate - - Oxygen Saturation 97% 03/03/2013 12:05 PM CDT Inhaled Oxygen Concentration - - Weight 65.8 kg (145 lb) 03/03/2013 12:05 PM CDT Height 167.6 cm (5' 6 ) 03/03/2013 12:05 PM CDT Body Mass Index 23.4 03/03/2013 12:05 PM CDT Plan of Treatment Not on file Care Teams Career Coach Relationship Specialty Start Date End Date Pcp, No PCP - General 03/03/13
--- OUTSIDE RECORDS SUMMARY | 2024-07-22 11:02 | XMS_ITS | Clinical Summary ---
Author Organization [facility] Address [address] [place] [id number] Care Team Providers Care Legal Services Professional Name Role Phone Pcp, No Primary Care [...] on file Sexual Orientation Not on file Obstetrics History Last Filed Vital Signs Vital Sign Reading [...] 03/03/2013 12:05 PM CDT Plan of Treatment Health Maintenance Due Date Last Done Comments Depression Screening 1966 DTaP/Tdap/Td Vaccine (1 - Tdap) 1973 Breast Cancer Screening [address] CT Colonography 12/29/1999 Cologuard 12/29/1999 Colonoscopy 12/29/1999 Colorectal Cancer Screen 12/29/1999 Fecal Occult Blood 12/29/1999 Sigmoidoscopy 12/29/1999 Pneumococcal Vaccine 50+ (1 of 1 - PCV) 2004 Shingles Vaccine (1 of 2) 2004 Osteoporosis Screening 12/29/2019 COVID-19 Vaccine ( - 2023-2 5 season) 2024 Influenza Vaccine (#1) 2024 Respiratory Syncytial Virus (RSV) Vaccine 60+ (1 - 1-dose 75+ series) 2029 HPV Vaccine Aged Out No longer eligi ble based on patient's age to complete this topic Hepatitis A Vaccine Aged Out No longe r eligible based on patient's age to complete this topic Hepatitis B Vaccine (For Physician/APC Discussion) Aged Out No longer elig ible based on patient's age to complete this topic Meningococcal Serogroup B Vaccine Aged Out No longer eligible based on patient's age to complete this topic Meningococcal Vaccine Aged Out No viki mayo eligible based on patient's age to complete this topic Care Teams Legal Services Professional Relationship Specialty Start Date End Date Pcp, No PCP - General 03/03/13
--- OUTSIDE RECORDS SUMMARY | 2024-07-22 11:02 | XMS_ITS | Clinical Summary ---
Author Organization [facility] Address [address] [address] [place] [address] Care Team Providers Care Yeast Culture Operator Name Role Phone Unavailable Primary Care Provider Unavailabl e Medications denosumab (Prolia) 60 mg/mL Syringe inject 1 mL under the skin once weekly every 6 months 1 mL 1 12/20/2022 10:41 AM CDT 12/12/2022 Active Social History Tobacco Use Types Packs/Day Years Used Date Smoking Tobacco: Never Assessed Comments Unknown Sex and Gender Information Value Date Recorded Sex Assigned at Not on file Legal Sex Female 2:19 PM CDT Gender Identity Not on file Sexual Orientation Not on file Plan of Treatment Health Maintenance Due Date Last Done Comments DTAP/TDAP/TD VACCINES (1 - Tdap) 1973 BREAST CANCER SCREENING 1994 COLORECTAL SCREENING 12/29/1999 Colorectal Cancer Screening 12/29/1999 FIT-DNA Q 3 years 12/29/1999 FIT/FOBT Q 1 year 12/29/1999 Flex Sig/CT Colonography Q 5 years 12/29/1999 PNEUMOCOCCAL VACCINE 65+ YEARS (1 of 1 - PCV) 12/29/19 05 ZOSTER VACCINE (1 of 2) 2004 OSTEOPOROSIS SCREENING 12/29/2019 INFLUENZA VACCINE (#1) 2024 RSV VACCINE (60+ or ) (1 - 1-dose 75+ series) 2029 Insurance RX [employer] Member Subscriber Plan / Payer (Ef fective 2022-Present) Name:Arabella Zamora Relation to Subscriber:Self Name:Arabella Zamora Subscriber ID:Not on file Payer ID:Not on file Group ID:[id number] Type:RX Medicare Part D Address: [address]
--- OUTSIDE RECORDS SUMMARY | 2024-07-22 11:02 | XMS_ITS | Data Portability ---
Author Organization [place] - [facility] [employer], Main Office Address [address] [place] [address] Care Team Providers Care Trouble Lineman Name Role Phone CRISPIN HNA Primary Care Provider Assessment No assessment recorded. Plan of Treatment Reminders Order Date Submit Date Provider Last Modified By Organization Details Last Modified Time Details Appointments None recorded. Lab fecal fat, qualitative , stool 2022 023 [facility], [address], [place], [address], 3 15:04:04 celiac disease comprehensi ve panel, serum 2022 023 [facility], [address], [place], [address], 3 15:04:06 pancreatic elastase, stool 2022 023 [facility], [address], [place], [address], 3 15:04:06 food allergen panel, serum 2022 023 [facility], [address], [place], [address], 3 15:04:00 vitamin D, 25-hydroxy, total, serum 2022 023 [facility], [address], [place], [address], 3 15:04:05 CMP, serum or plasma 2022 023 [email or web address], [address], [place], [address], 3 15:04:07 PTH (parathyroi d hormone), intact + calcium, serum or plasma 2022 023 CARLYPinpoint MD [facility], [address], [place], [address], 3 15:04:01 phosphorus, serum or plasma 2022 023 [facility], [address], [place], [address], 3 15:04:02 TSH + free T4, serum 2022 023 [facility], [address], [place], [address], 3 15:04:04 T3, free, serum or plasma 2022 023 [facility], [address], [place], [address], 3 15:04:03 vitamin B12 + folate, serum or blood 2022 023 [facility], [address], [place], [address], 3 15:04:03 Referral None recorded. Procedures None recorded. Surgeries None recorded. Imaging None recorded. Medication Orders Prolia 60 mg/mL subcutaneou s syringe 2022 023 [facility], [address], [place], [place], [id number], 3 15:02:52 Prolia 60 mg/mL subcutaneou s syringe 2022 023 [email or web address] [id number], [address] [place], [address], 3 16:52:38 Patient TargetsNo targets recorded. Patient InstructionsNo instructions recorded. Reason for Referral None Reported. Results Created Date Observation Date Name Description Value Unit Range Abnormal Flag Note LastModifiedBy Organization Detail LastModifiedTime 04/02/20 21 04/04/2021 VITAM IN D,25- OH,TO DELVIS,I A vitamin D,25-oh,tota l,ia 36 NG/mL 30-100 normal Vitam in D Statu s 25-OH Vitam in D: Defic iency : <20 ng/mL Insuf ficie ncy: 20 - 29 ng/mL Optim al: > or = 30 ng/mL For 25-OH Vitam in D testi ng on patie nts on D2-strickland pplem entat ion and patie nts for whom quant itati on of D2 and D3 fract ions is requi red, the Quest Assur eD(TM ) 25-OH VIT D, (D2,D 3), LC/MS /MS is recom lakshmi d: order code 89725 (marissa ents >2yrs ). See Note 1 Note 1 For addit ional infor hawa beal refer to http: //kailee rielly.Que stDia gnost ics.c om/fa q/FAQ 199 (This link is being provi ded for infor kevin gifford/ gloria orozco purpo ses only. ) Not Available [facility] [address] [place], [address], 04/04/2021 15:00:06 04/02/2004/04/2021 COMPR EHENS VIANCA METAB OLIC PANEL glucose 96 mg/dL 65-99 normal Fasti ng refer ence inter dominguez Not Available [facility] [address] [place], [address], 04/04/2021 15:00:06 04/02/20 21 04/04/2021 COMPR EHENS VIANCA METAB OLIC PANEL urea nitrogen (BUN) 19 mg/dL 7-25 normal Not Available [address], [address], 04/04/2021 15:00:06 04/02/20 21 04/04/2021 COMPR EHENS VIANCA METAB OLIC PANEL creatinine 0.99 mg/dL 0.50-0 .99 normal For patie nts >49 years of age, the refer ence limit for Creat inine is appro ximat mihai 13% highe r for peopl e ident ified as Afric an-Am shani n. Not Available [address], [address], 04/04/2021 15:00:06 04/02/20 21 04/04/2021 COMPR EHENS VIANCA METAB OLIC PANEL eGFR non-afr. canadian 59 mL/mi n/1.7 3m2 > or = 60 low Not Available [address] [place], [address], 04/04/2021 15:00:06 04/02/20 21 04/04/2021 COMPR EHENS VIANCA METAB OLIC PANEL eGFR 69 mL/mi n/1.7 3m2 > or = 60 normal Not Available [address], [address], 04/04/2021 15:00:06 04/02/20 21 04/04/2021 COMPR EHENS VIANCA METAB OLIC PANEL BUN/creatini ne ratio not applic able (calc ) 6-22 Not Available [address], [address], 04/04/2021 15:00:06 04/02/20 21 04/04/2021 COMPR EHENS VIANCA METAB OLIC PANEL sodium 139 mmol/ L 135-14 6 normal Not Available [address], [address], 04/04/2021 15:00:06 04/02/20 21 04/04/2021 COMPR EHENS VIANCA METAB OLIC PANEL potassium 4.3 mmol/ L 3.5-5. 3 normal Not Available [address], [address], 04/04/2021 15:00:06 04/02/20 21 04/04/2021 COMPR EHENS VIANCA METAB OLIC PANEL chloride 104 mmol/ L 98-110 normal Not Available [address], [address], 04/04/2021 15:00:06 04/02/20 21 04/04/2021 COMPR EHENS VIANCA METAB OLIC PANEL carbon dioxide 28 mmol/ L 20-32 normal Not Available [address], [address], 04/04/2021 15:00:06 04/02/20 21 04/04/2021 COMPR EHENS VIANCA METAB OLIC PANEL calcium 9.0 mg/dL 8.6-10 .4 normal Not Available [address], [address], 04/04/2021 15:00:06 04/02/20 21 04/04/2021 COMPR EHENS VIANCA METAB OLIC PANEL protein, total 6.5 g/dL 6.1-8. 1 normal Not Available [address], [address], 04/04/2021 15:00:06 04/02/20 21 04/04/2021 COMPR EHENS VIANCA METAB OLIC PANEL albumin 4.1 g/dL 3.6-5. 1 normal Not Available [address], [address], 04/04/2021 15:00:06 04/02/20 21 04/04/2021 COMPR EHENS VIANCA METAB OLIC PANEL globulin 2.4 g/dL_ (calc ) 1.9-3. 7 normal Not Available [address], [address], 04/04/2021 15:00:06 04/02/20 21 04/04/2021 COMPR EHENS VIANCA METAB OLIC PANEL albumin/glob ulin ratio 1.7 (calc ) 1.0-2. 5 normal Not Available [address], [address], 04/04/2021 15:00:06 04/02/20 21 04/04/2021 COMPR EHENS VIANCA METAB OLIC PANEL bilirubin, total 0.4 mg/dL 0.2-1. 2 normal Not Available [address], [address], 04/04/2021 15:00:06 04/02/20 21 04/04/2021 COMPR EHENS VIANCA METAB OLIC PANEL alkaline phosphatase 55 U/L 37-153 normal Not Available [address], [address], 04/04/2021 15:00:06 04/02/20 21 04/04/2021 COMPR EHENS VIANCA METAB OLIC PANEL AST 17 U/L 10-35 normal Not Available [address], [address], 04/04/2021 15:00:06 04/02/20 21 04/04/2021 COMPR EHENS VIANCA METAB OLIC PANEL ALT 14 U/L 6-29 normal Not Available [address], [address], 04/04/2021 15:00:06 04/02/20 21 04/04/2021 PHOSP HATE ( PHOSP HORUS ) phosphate ( phosphorus) 4.2 mg/dL 2.1-4. 3 normal Not Available [address], [address], 04/04/2021 15:00:05 04/02/20 21 04/04/2021 PTH, INTAC T AND CALCI UM parathyroid hormone, intact 43 pg/mL 14-64 normal Inter preti ve Guide Intac t PTH Calci um ----- ----- ----- --- ----- ----- ----- -- Carla l Parat hyroi d Carla l Carla l Hypop andres yroid ism Low or Low Carla l Low Hyper parat hyroi dism Prima ry Carla l or High High Secon akilah High Carla l or Low Terti selena High High Non-P andres yroid Hyper calce pavan Low or Low Carla l High Not Available [facility] [address] [place], [address], 04/04/2021 15:00:05 04/02/2004/04/2021 PTH, INTAC T AND CALCI UM calcium 9.0 mg/dL 8.6-10 .4 normal Not Available [facility] [address] [place], [address], 04/04/2021 15:00:05 09/22/19 22 09/22/2021 VITAM IN D,25- OH,TO DELVIS,I A vitamin D,25-oh,tota l,ia 34 NG/mL 30-100 normal Vitam in D Statu s 25-OH Vitam in D: Defic iency : <20 ng/mL Insuf ficie ncy: 20 - 29 ng/mL Optim al: > or = 30 ng/mL For 25-OH Vitam in D testi ng on patie nts on D2-strickland pplem entat ion and patie nts for whom quant itati on of D2 and D3 fract ions is requi red, the Quest Assur eD(TM ) 25-OH VIT D, (D2,D 3), LC/MS /MS is recom lakshmi d: order code 81962 (marissa ents >2yrs ). See Note 1 Note 1 For addit ional infor hawa beal e refer to http: //kailee Modi gnost ics.c om/fa q/FAQ 199 (This link is being provi ded for christel gifford/ gloria camachoo ses only. ) Not Available [address] [address] [place], [address], 09/22/2021 07:15:21 09/22/19 22 09/22/2021 T3, FREE T3, free 3.0 pg/mL 2.3-4. 2 normal Not Available [facility] [address] [address] [place], [address], 09/22/2021 07:15:20 09/22/19 22 09/22/2021 PHOSP HATE ( PHOSP HORUS ) phosphate ( phosphorus) 4.4 mg/dL 2.1-4. 3 high Not Available [address], [address], 09/22/2021 07:15:19 09/22/19 22 09/22/2021 PTH, INTAC T AND CALCI UM parathyroid hormone, intact 30 pg/mL 16-77 normal Inter preti ve Guide Intac t PTH Calci um ----- ----- ----- --- ----- ----- ----- -- Carla l Parat hyroi d Carla l Carla l Hypop andres yroid ism Low or Low Carla l Low Hyper parat hyroi dism Prima ry Carla l or High High Secon akilah High Carla l or Low Terti selena High High Non-P andres yroid Hyper calce pavan Low or Low Carla l High Not Available [address], [address], 09/22/2021 07:15:17 09/22/19 22 09/22/2021 PTH, INTAC T AND CALCI UM calcium 9.5 mg/dL 8.6-10 .4 normal Not Available [address], [place], [address], 09/22/2021 07:15:17 09/22/19 22 09/22/2021 TSH TSH 1.72 mIU/L 0.40-4 .50 normal Not Available [address], [address], 09/22/2021 10:57:05 09/22/19 22 09/22/2021 TSH copy received from: [facility] [address] [place] [address] Not Available [address], [address], 09/22/2021 10:57:05 09/22/19 22 09/22/2021 T4, FREE T4, free 1.5 NG/dL 0.8-1. 8 normal Not Available [address], [address], 09/22/2021 10:57:05 09/22/19 22 09/22/2021 T4, FREE copy received from: [facility] [address] [place] [address] Not Available [address], [address], 09/22/2021 10:57:05 09/22/19 22 09/22/2021 CBC (H/H, RBC, INDIC ES, WBC, PLT) white blood cell count 5.5 thous and/u L 3.8-10 .8 normal Not Available [address], [address], 09/22/2021 10:57:04 09/22/19 22 09/22/2021 CBC (H/H, RBC, INDIC ES, WBC, PLT) red blood cell count 4.95 loretta on/uL 3.80-5 .10 normal Not Available [address], [address], 09/22/2021 10:57:04 09/22/19 22 09/22/2021 CBC (H/H, RBC, INDIC ES, WBC, PLT) hemoglobin 15.1 g/dL 11.7-1 5.5 normal Not Available [address], [address], 09/22/2021 10:57:04 09/22/19 22 09/22/2021 CBC (H/H, RBC, INDIC ES, WBC, PLT) hematocrit 45.0 % 35.0-4 5.0 normal Not Available [address], [address], 09/22/2021 10:57:04 09/22/19 22 09/22/2021 CBC (H/H, RBC, INDIC ES, WBC, PLT) MCV 90.9 fL 80.0-1 00.0 normal Not Available [address], [address], 09/22/2021 10:57:04 09/22/19 22 09/22/2021 CBC (H/H, RBC, INDIC ES, WBC, PLT) MCH 30.5 pg 27.0-3 3.0 normal Not Available [address], [address], 09/22/2021 10:57:04 09/22/19 22 09/22/2021 CBC (H/H, RBC, INDIC ES, WBC, PLT) MCHC 33.6 g/dL 32.0-3 6.0 normal Not Available [address], [address], 09/22/2021 10:57:04 09/22/19 22 09/22/2021 CBC (H/H, RBC, INDIC ES, WBC, PLT) RDW 12.7 % 11.0-1 5.0 normal Not Available [address], [address], 09/22/2021 10:57:04 09/22/19 22 09/22/2021 CBC (H/H, RBC, INDIC ES, WBC, PLT) platelet count 279 thous and/u L 140-40 0 normal Not Available [address], [address], 09/22/2021 10:57:04 09/22/19 22 09/22/2021 CBC (H/H, RBC, INDIC ES, WBC, PLT) MPV 9.8 fL 7.5-12 .5 normal Not Available [address], [address], 09/22/2021 10:57:04 09/22/19 22 09/22/2021 CBC (H/H, RBC, INDIC ES, WBC, PLT) copy received from: [facility] [facility] [address] [place] [address] Not Available [address], [address], 09/22/2021 10:57:04 09/22/19 22 09/22/2021 COMPR EHENS VIANCA METAB OLIC PANEL glucose 84 mg/dL 65-99 normal Fasti ng refer ence inter dominguez Not Available [address], [address], 09/22/2021 10:57:04 09/22/19 22 09/22/2021 COMPR EHENS VIANCA METAB OLIC PANEL urea nitrogen (BUN) 21 mg/dL 7-25 normal Not Available [address], [address], 09/22/2021 10:57:04 09/22/19 22 09/22/2021 COMPR EHENS VIANCA METAB OLIC PANEL creatinine 0.95 mg/dL 0.50-0 .99 normal For patie nts >49 years of age, the refer ence limit for Creat inine is appro xikyarat mihai 13% highe r for peopl e ident ified as Afric an-Am shani n. Not Available [address], [address], 09/22/2021 10:57:04 09/22/19 22 09/22/2021 COMPR EHENS VIANCA METAB OLIC PANEL eGFR non-afr. canadian 62 mL/mi n/1.7 3m2 > or = 60 normal Not Available [address], [address], 09/22/2021 10:57:04 09/22/19 22 09/22/2021 COMPR EHENS VIANCA METAB OLIC PANEL eGFR 72 mL/mi n/1.7 3m2 > or = 60 normal Not Available [address] [address] [place], [address], 09/22/2021 10:57:04 09/22/19 22 09/22/2021 COMPR EHENS VIANCA METAB OLIC PANEL BUN/creatini ne ratio not applic able (calc ) 6-22 Not Available [address], [address], 09/22/2021 10:57:04 09/22/19 22 09/22/2021 COMPR EHENS VIANCA METAB OLIC PANEL sodium 138 mmol/ L 135-14 6 normal Not Available [facility] [address], [address], 09/22/2021 10:57:04 09/22/19 22 09/22/2021 COMPR EHENS VIANCA METAB OLIC PANEL potassium 4.1 mmol/ L 3.5-5. 3 normal Not Available [address], [address], 09/22/2021 10:57:04 09/22/19 22 09/22/2021 COMPR EHENS VIANCA METAB OLIC PANEL chloride 101 mmol/ L 98-110 normal Not Available [address], [address], 09/22/2021 10:57:04 09/22/19 22 09/22/2021 COMPR EHENS VIANCA METAB OLIC PANEL carbon dioxide 26 mmol/ L 20-32 normal Not Available [address], [address], 09/22/2021 10:57:04 09/22/19 22 09/22/2021 COMPR EHENS VIANCA METAB OLIC PANEL calcium 9.4 mg/dL 8.6-10 .4 normal Not Available [address], [address], 09/22/2021 10:57:04 09/22/19 22 09/22/2021 COMPR EHENS VIANCA METAB OLIC PANEL protein, total 7.0 g/dL 6.1-8. 1 normal Not Available [address], [address], 09/22/2021 10:57:04 09/22/19 22 09/22/2021 COMPR EHENS VIANCA METAB OLIC PANEL albumin 4.5 g/dL 3.6-5. 1 normal Not Available [address], [address], 09/22/2021 10:57:04 09/22/19 22 09/22/2021 COMPR EHENS VIANCA METAB OLIC PANEL globulin 2.5 g/dL_ (calc ) 1.9-3. 7 normal Not Available [address], [address], 09/22/2021 10:57:04 09/22/19 22 09/22/2021 COMPR EHENS VIANCA METAB OLIC PANEL albumin/glob ulin ratio 1.8 (calc ) 1.0-2. 5 normal Not Available [address], [address], 09/22/2021 10:57:04 09/22/19 22 09/22/2021 COMPR EHENS VIANCA METAB OLIC PANEL bilirubin, total 0.6 mg/dL 0.2-1. 2 normal Not Available [address], [address], 09/22/2021 10:57:04 09/22/19 22 09/22/2021 COMPR EHENS VIANCA METAB OLIC PANEL alkaline phosphatase 51 U/L 37-153 normal Not Available [address] [address] [place], [address], 09/22/2021 10:57:04 09/22/19 22 09/22/2021 COMPR EHENS VIANCA METAB OLIC PANEL AST 18 U/L 10-35 normal Not Available [address], [address], 09/22/2021 10:57:04 09/22/19 22 09/22/2021 COMPR EHENS VIANCA METAB OLIC PANEL ALT 13 U/L 6-29 normal Not Available [address], [address], 09/22/2021 10:57:04 09/22/19 22 09/22/2021 COMPR EHENS VIANCA METAB OLIC PANEL copy received from: [facility] [facility] [address] [place] [address] Not Available [address], [address], 09/22/2021 10:57:04 09/22/19 22 09/22/2021 LIPID PANEL , STAND NANNETTE chol/HDLC ratio 2.3 (calc ) <5.0 normal Not Available [address] [address] [address], [place], [address], 09/22/2021 10:57:04 09/22/19 22 09/22/2021 LIPID PANEL , STAND NANNETTE cholesterol, total 149 mg/dL <200 normal Not Available [facility] [address] [address] [place], [address], 09/22/2021 10:57:04 09/22/19 22 09/22/2021 LIPID PANEL , STAND NANNETTE HDL cholesterol 65 mg/dL > or = 50 normal Not Available [facility] [address] [address] [place], [address], 09/22/2021 10:57:04 09/22/19 22 09/22/2021 LIPID PANEL , STAND NANNETTE triglyceride s 62 mg/dL <150 normal Not Available [facility] [address] [address] [place], [address], 09/22/2021 10:57:04 09/22/19 22 09/22/2021 LIPID PANEL , STAND NANNETTE LDL-choleste rol 70 mg/dL _(kat c) normal Refer ence range : <100 Mahendra able range <100 mg/dL for prima ry preve ntion ; <70 mg/dL for patie nts with CHD or diabe tic patie nts with > or = 2 CHD risk facto rs. LDL-C is now calcu lated using the Alisa reilly-Hop kins pauline jimenez n, which is a valid ated novel shanthio jordana proctor r accur acy than the Fried chad equat ion in the estim ation of LDL-C . Alisa reilly SS et al. KRISTEN. 2013; 310(1 9): 2061- 2068 (http ://ed ucati on.Qu Brando alvarengas. com/f aq/FA Q164) Not Available [facility] [address] [address], [place], [address], 09/22/2021 10:57:04 09/22/19 22 09/22/2021 LIPID PANEL , STAND NANNETTE non HDL cholesterol 84 mg/dL _(kat c) <130 normal For patie nts with diabe home plus 1 major ASCVD risk facto r, treat ing to a non-H DL-C goal of <100 mg/dL (LDL- C of <70 mg/dL ) is azalea bustos optio n. Not Available [address] [address] [place], [address], 09/22/2021 10:57:04 09/22/19 22 09/22/2021 LIPID PANEL , STAND NANNETTE copy received from: [facility] [facility] [address] [facility] [place] [address] Not Available [facility] [employer] [address] [address] [place], [address], 09/22/2021 10:57:04 03/16/20 22 03/17/2022 TSH+F REE T4 TSH 3.78 mIU/L 0.40-4 .50 normal Not Available [facility] [address] [address] [place], [address], 03/17/2022 10:28:45 03/16/20 22 03/17/2022 TSH+F REE T4 T4, free 1.4 NG/dL 0.8-1. 8 normal Not Available [address] [address] [place], [address], 03/17/2022 10:28:45 03/16/20 22 03/17/2022 VITAM IN D,25- OH,TO DELVIS,I A vitamin D,25-oh,tota l,ia 57 NG/mL 30-100 normal Vitam in D Statu s 25-OH Vitam in D: Defic iency : <20 ng/mL Insuf ficie ncy: 20 - 29 ng/mL Optim al: > or = 30 ng/mL For 25-OH Vitam in D testi ng on patie nts on D2-strickland pplem entat ion and patie nts for whom quant itati on of D2 and D3 fract ions is requi red, the Quest Assur eD(TM ) 25-OH VIT D, (D2,D 3), LC/MS /MS is recom lakshmi d: order code 01356 (marissa ents >2yrs ). See Note 1 Note 1 For addit ional infor hawa beal refer to http: //[facility] desiree Cortesia gnost ics.c om/fa q/FAQ 199 (This link is being provi ded for infor kevin gifford/ gloria orozco purpo ses only. ) Not Available [address], [address], 03/17/2022 10:28:44 03/16/2003/17/2022 T3, FREE T3, free 2.9 pg/mL 2.3-4. 2 normal Not Available [address], [address], 03/17/2022 10:28:44 03/16/2003/17/2022 COMPR EHENS VIANCA METAB OLIC PANEL glucose 88 mg/dL 65-99 normal Fasti ng refer ence inter dominguez Not Available [address], [address], 03/17/2022 10:28:43 03/16/2003/17/2022 COMPR EHENS VIANCA METAB OLIC PANEL urea nitrogen (BUN) 20 mg/dL 7-25 normal Not Available [address], [address], 03/17/2022 10:28:43 03/16/20 22 03/17/2022 COMPR EHENS VIANCA METAB OLIC PANEL creatinine 0.92 mg/dL 0.50-1 .05 normal Not Available [address], [address], 03/17/2022 10:28:43 03/16/20 22 03/17/2022 COMPR EHENS VIANCA METAB OLIC PANEL eGFR 68 mL/mi n/1.7 3m2 > or = 60 normal The eGFR is based on the CKD-E PI 2020 equat ion. To calcu late the new eGFR from a previ ous Creat inine or Cysta tin C resul t, go to https ://shamar lopez.man jenkins/pr ofess ional s/ kdoqi /gfr% 5Fcal culat or Not Available [address] [place], [address], 03/17/2022 10:28:43 03/16/20 22 03/17/2022 COMPR EHENS VIANCA METAB OLIC PANEL BUN/creatini ne ratio not applic able (calc ) 6-22 Not Available [address] [address] [place], [address], 03/17/2022 10:28:43 03/16/20 22 03/17/2022 COMPR EHENS VIANCA METAB OLIC PANEL sodium 137 mmol/ L 135-14 6 normal Not Available [address] [address] [place], [address], 03/17/2022 10:28:43 03/16/20 22 03/17/2022 COMPR EHENS VIANCA METAB OLIC PANEL potassium 4.2 mmol/ L 3.5-5. 3 normal Not Available [address] [address] [place], [address], 03/17/2022 10:28:43 03/16/20 22 03/17/2022 COMPR EHENS VIANCA METAB OLIC PANEL chloride 102 mmol/ L 98-110 normal Not Available [employer] [address] [address] [place], [address], 03/17/2022 10:28:43 03/16/20 22 03/17/2022 COMPR EHENS VIANCA METAB OLIC PANEL carbon dioxide 29 mmol/ L 20-32 normal Not Available [employer] [address] [address] [place], [address], 03/17/2022 10:28:43 03/16/20 22 03/17/2022 COMPR EHENS VIANCA METAB OLIC PANEL calcium 8.9 mg/dL 8.6-10 .4 normal Not Available [address], [address], 03/17/2022 10:28:43 03/16/2003/17/2022 COMPR EHENS VIANCA METAB OLIC PANEL protein, total 6.9 g/dL 6.1-8. 1 normal Not Available [address], [address], 03/17/2022 10:28:43 03/16/2003/17/2022 COMPR EHENS VIANCA METAB OLIC PANEL albumin 4.3 g/dL 3.6-5. 1 normal Not Available [address], [address], 03/17/2022 10:28:43 03/16/2003/17/2022 COMPR EHENS VIANCA METAB OLIC PANEL globulin 2.6 g/dL_ (calc ) 1.9-3. 7 normal Not Available [address], [address], 03/17/2022 10:28:43 03/16/2003/17/2022 COMPR EHENS VIANCA METAB OLIC PANEL albumin/glob ulin ratio 1.7 (calc ) 1.0-2. 5 normal Not Available [address], [address], 03/17/2022 10:28:43 03/16/20 22 03/17/2022 COMPR EHENS VIANCA METAB OLIC PANEL bilirubin, total 0.6 mg/dL 0.2-1. 2 normal Not Available [address], [address], 03/17/2022 10:28:43 03/16/20 22 03/17/2022 COMPR EHENS VIANCA METAB OLIC PANEL alkaline phosphatase 51 U/L 37-153 normal Not Available [facility] [address], [address], 03/17/2022 10:28:43 03/16/20 22 03/17/2022 COMPR EHENS VIANCA METAB OLIC PANEL AST 19 U/L 10-35 normal Not Available [facility] [address], [address], 03/17/2022 10:28:43 03/16/20 22 03/17/2022 COMPR EHENS VIANCA METAB OLIC PANEL ALT 16 U/L 6-29 normal Not Available [address], [address], 03/17/2022 10:28:43 03/16/2003/17/2022 PHOSP HATE ( PHOSP HORUS ) phosphate ( phosphorus) 3.9 mg/dL 2.1-4. 3 normal Not Available [address], [address], 03/17/2022 10:28:43 03/16/2003/17/2022 PTH, INTAC T AND CALCI UM parathyroid hormone, intact 37 pg/mL 16-77 normal Inter preti ve Guide Intac t PTH Calci um ----- ----- ----- --- ----- ----- ----- -- Carla l Parat hyroi d Carla l Carla l Hypop andres yroid ism Low or Low Carla l Low Hyper parat hyroi dism Prima ry Carla l or High High Secon [place] High Carla l or Low Terti selena High High Non-P andres yroid Hyper calce pavan Low or Low Carla l High Not Available [address], [address], 03/17/2022 10:28:42 03/16/2003/17/2022 PTH, INTAC T AND CALCI UM calcium 8.9 mg/dL 8.6-10 .4 normal Not Available [address], [address], 03/17/2022 10:28:42 08/31/19 23 08/31/2022 COMPR EHENS VIANCA METAB OLIC PANEL glucose 86 mg/dL 65-99 normal Fasti ng refer ence inter dominguez Not Available [address], [address], 08/31/2022 04:22:09 08/31/19 23 08/31/2022 COMPR EHENS VIANCA METAB OLIC PANEL urea nitrogen (BUN) 20 mg/dL 7-25 normal Not Available [address], [address], 08/31/2022 04:22:09 08/31/19 23 08/31/2022 COMPR EHENS VIANCA METAB OLIC PANEL creatinine 0.98 mg/dL 0.50-1 .05 normal Not Available [address], [address], 08/31/2022 04:22:09 08/31/19 23 08/31/2022 COMPR EHENS VIANCA METAB OLIC PANEL eGFR 63 mL/mi n/1.7 3m2 > or = 60 normal The eGFR is based on the CKD-E PI 2020 equat ion. To calcu late the new eGFR from a previ ous Creat inine or Cysta tin C resul t, go to https ://ww w.kid john.o gregory/ingrid solomon s/ kdoqi /gfr% 5Fcal culat or Not Available [address], [address], 08/31/2022 04:22:09 08/31/19 23 08/31/2022 COMPR EHENS VIANCA METAB OLIC PANEL BUN/creatini ne ratio NOT APPLIC ABLE (calc ) 6-22 Not Available [address], [address], 08/31/2022 04:22:09 08/31/19 23 08/31/2022 COMPR EHENS VIANCA METAB OLIC PANEL sodium 139 mmol/ L 135-14 6 normal Not Available [address], [address], 08/31/2022 04:22:09 08/31/19 23 08/31/2022 COMPR EHENS VIANCA METAB OLIC PANEL potassium 4.4 mmol/ L 3.5-5. 3 normal Not Available [address], [address], 08/31/2022 04:22:09 08/31/19 23 08/31/2022 COMPR EHENS VIANCA METAB OLIC PANEL chloride 101 mmol/ L 98-110 normal Not Available [address], [address], 08/31/2022 04:22:09 08/31/19 23 08/31/2022 COMPR EHENS VIANCA METAB OLIC PANEL carbon dioxide 32 mmol/ L 20-32 normal Not Available [address], [address], 08/31/2022 04:22:09 08/31/19 23 08/31/2022 COMPR EHENS VIANCA METAB OLIC PANEL calcium 9.0 mg/dL 8.6-10 .4 normal Not Available [address], [address], 08/31/2022 04:22:09 08/31/19 23 08/31/2022 COMPR EHENS VIANCA METAB OLIC PANEL protein, total 7.2 g/dL 6.1-8. 1 normal Not Available [address], [address], 08/31/2022 04:22:09 08/31/19 23 08/31/2022 COMPR EHENS VIANCA METAB OLIC PANEL albumin 4.2 g/dL 3.6-5. 1 normal Not Available [address], [address], 08/31/2022 04:22:09 08/31/19 23 08/31/2022 COMPR EHENS VIANCA METAB OLIC PANEL globulin 3.0 g/dL_ (calc ) 1.9-3. 7 normal Not Available [address], [address], 08/31/2022 04:22:09 08/31/19 23 08/31/2022 COMPR EHENS VIANCA METAB OLIC PANEL albumin/glob ulin ratio 1.4 (calc ) 1.0-2. 5 normal Not Available [address], [address], 08/31/2022 04:22:09 08/31/19 23 08/31/2022 COMPR EHENS VIANCA METAB OLIC PANEL bilirubin, total 0.4 mg/dL 0.2-1. 2 normal Not Available [address], [address], 08/31/2022 04:22:09 08/31/19 23 08/31/2022 COMPR EHENS VIANCA METAB OLIC PANEL alkaline phosphatase 48 U/L 37-153 normal Not Available [address], [address], 08/31/2022 04:22:09 08/31/19 23 08/31/2022 COMPR EHENS VIANCA METAB OLIC PANEL AST 20 U/L 10-35 normal Not Available [address], [address], 08/31/2022 04:22:09 08/31/19 23 08/31/2022 COMPR EHENS VIANCA METAB OLIC PANEL ALT 17 U/L 6-29 normal Not Available [address], [place], [address], 08/31/2022 04:22:09 08/31/19 23 08/31/2022 TSH+F REE T4 TSH 3.63 mIU/L 0.40-4 .50 normal Not Available [address], [address], 08/31/2022 04:22:10 08/31/1908/31/2022 TSH+F REE T4 T4, free 1.4 NG/dL 0.8-1. 8 normal Not Available [facility] [address], [address], 08/31/2022 04:22:10 12/06/19 23 12/06/2022 PTH, INTAC T AND CALCI UM parathyroid hormone, intact 18 pg/mL 16-77 normal Inter preti ve Guide Intac t PTH Calci um ----- ----- ----- --- ----- ----- ----- -- Carla l Parat hyroi d Carla l Carla l Hypop andres yroid ism Low or Low Carla l Low Hyper parat hyroi dism Prima ry Carla l or High High Secon akilah High Carla l or Low Terti selena High High Non-P andres yroid Hyper calce pavan Low or Low Carla l High Not Available [address], [address], 12/06/2022 04:48:46 12/06/19 23 12/06/2022 PTH, INTAC T AND CALCI UM calcium 9.2 mg/dL 8.6-10 .4 normal Not Available [address], [address], 12/06/2022 04:48:46 12/06/19 23 12/06/2022 COMPR EHENS VIANCA METAB OLIC PANEL glucose 86 mg/dL 65-99 normal Fasti ng refer ence inter dominguez Not Available [facility] [address] [place], [address], 12/06/2022 04:48:47 12/06/19 23 12/06/2022 COMPR EHENS VIANCA METAB OLIC PANEL urea nitrogen (BUN) 22 mg/dL 7-25 normal Not Available [address], [address], 12/06/2022 04:48:47 12/06/19 23 12/06/2022 COMPR EHENS VIANCA METAB OLIC PANEL creatinine 0.98 mg/dL 0.50-1 .05 normal Not Available [address], [address], 12/06/2022 04:48:47 12/06/19 23 12/06/2022 COMPR EHENS VIANCA METAB OLIC PANEL eGFR 63 mL/mi n/1.7 3m2 > or = 60 normal The eGFR is based on the CKD-E PI 2020 equat ion. To calcu late the new eGFR from a previ ous Creat inine or Cysta tin C resul t, go to https :[email or web address] [email or web address] [email or web address]/ kdoqi /gfr% 5Fcal culat or Not Available [address], [address], 12/06/2022 04:48:47 12/06/19 23 12/06/2022 COMPR EHENS VIANCA METAB OLIC PANEL BUN/creatini ne ratio NOT APPLIC ABLE (calc ) 6-22 Not Available [address] [address] [place], [address], 12/06/2022 04:48:47 12/06/19 23 12/06/2022 COMPR EHENS VIANCA METAB OLIC PANEL sodium 140 mmol/ L 135-14 6 normal Not Available [address], [address], 12/06/2022 04:48:47 12/06/19 23 12/06/2022 COMPR EHENS VIANCA METAB OLIC PANEL potassium 4.1 mmol/ L 3.5-5. 3 normal Not Available [address], [address], 12/06/2022 04:48:47 12/06/19 23 12/06/2022 COMPR EHENS VIANCA METAB OLIC PANEL chloride 104 mmol/ L 98-110 normal Not Available [address], [address], 12/06/2022 04:48:47 12/06/19 23 12/06/2022 COMPR EHENS VIANCA METAB OLIC PANEL carbon dioxide 29 mmol/ L 20-32 normal Not Available [address], [address], 12/06/2022 04:48:47 12/06/19 23 12/06/2022 COMPR EHENS VIANCA METAB OLIC PANEL calcium 9.2 mg/dL 8.6-10 .4 normal Not Available [address], [address], 12/06/2022 04:48:47 12/06/19 23 12/06/2022 COMPR EHENS VIANCA METAB OLIC PANEL protein, total 6.8 g/dL 6.1-8. 1 normal Not Available [address], [address], 12/06/2022 04:48:47 12/06/19 23 12/06/2022 COMPR EHENS VIANCA METAB OLIC PANEL albumin 4.0 g/dL 3.6-5. 1 normal Not Available [address], [address], 12/06/2022 04:48:47 12/06/19 23 12/06/2022 COMPR EHENS VIANCA METAB OLIC PANEL globulin 2.8 g/dL_ (calc ) 1.9-3. 7 normal Not Available [address], [address], 12/06/2022 04:48:47 12/06/1912/06/2022 COMPR EHENS VIANCA METAB OLIC PANEL albumin/glob ulin ratio 1.4 (calc ) 1.0-2. 5 normal Not Available [address], [address], 12/06/2022 04:48:47 12/06/1912/06/2022 COMPR EHENS VIANCA METAB OLIC PANEL bilirubin, total 0.6 mg/dL 0.2-1. 2 normal Not Available [address], [address], 12/06/2022 04:48:47 12/06/19 23 12/06/2022 COMPR EHENS VIANCA METAB OLIC PANEL alkaline phosphatase 48 U/L 37-153 normal Not Available [address], [address], 12/06/2022 04:48:47 12/06/19 23 12/06/2022 COMPR EHENS VIANCA METAB OLIC PANEL AST 19 U/L 10-35 normal Not Available [address], [address], 12/06/2022 04:48:47 12/06/1912/06/2022 COMPR EHENS VIANCA METAB OLIC PANEL ALT 15 U/L 6-29 normal Not Available [address], [address], 12/06/2022 04:48:47 12/06/1912/06/2022 PHOSP HATE ( PHOSP HORUS ) phosphate ( phosphorus) 4.5 mg/dL 2.1-4. 3 high Not Available [address], [address], 12/06/2022 04:48:47 12/06/19 23 12/06/2022 T3, FREE T3, free 3.1 pg/mL 2.3-4. 2 normal Not Available [address], [address], 12/06/2022 04:48:48 12/06/19 23 12/06/2022 VITAM IN D,25- OH,TO DELVIS,I A vitamin D,25-oh,tota l,ia 86 NG/mL 30-100 normal Vitam in D Statu s 25-OH Vitam in D: Defic iency : <20 ng/mL Insuf ficie ncy: 20 - 29 ng/mL Optim al: > or = 30 ng/mL For 25-OH Vitam in D testi ng on patie nts on D2-strickland pplem entat ion and patie nts for whom quant itati on of D2 and D3 fract ions is requi red, the [facility](TM ) 25-OH VIT D, (D2,D 3), LC/MS /MS is recom lakshmi d: order code 62353 (marissa ents >2yrs ). See Note 1 Note 1 For addit ional infor hawa beal refer to http: //kailee Modi gndelia ics.c om/fa q/FAQ 199 (This link is being provi ded for infor kevin gifford/ gloria orozco purpo ses only. ) Not Available [address] [place], [address], 12/06/2022 04:48:48 12/06/19 23 12/06/2022 TSH+F REE T4 TSH 3.64 mIU/L 0.40-4 .50 normal Not Available [employer] [address], [address], 12/06/2022 04:48:49 12/06/19 23 12/06/2022 TSH+F REE T4 T4, free 1.5 NG/dL 0.8-1. 8 normal Not Available [employer] [address] [facility] [place], [address], 12/06/2022 04:48:49 11/11/19 22 11/10/2021 bone densi ty No observ ation record ed. [id number], [place], [address], 08/23/2022 02:49:41 11/19/19 22 11/01/2020 bone densi ty No observ ation record ed. [id number] [facility] [address], [place], [address], 08/23/2022 02:49:41 Result Notes None recorded. Problems Name Problem SNOMED Code Status Onset Date Resolution Date Notes Provider Name and Address Organization Details Recorded Time Vitamin D deficiency 70120789 Active 2021 Not Available [facility] 3 02:38:19 Primary hyperparathyr oidism 49891492 Active 2021 Not Available [facility] 3 02:38:19 Hypothyroidis m 22260418 Active 2021 Not Available [facility] 3 02:38:19 Osteoporosis 10421448 Active 2021 Not Available [facility] 3 02:38:19 Hyperparathyr oidism 76611493 Active 2020 Not Available [facility] 3 02:38:20 Postmenopausa l osteoporosis 717209495 Active 2022 Marilee Olivas MD [address] [address], [place], [address] , [facility] 3 14:59:52 Loose stool 645749683 Active 2022 Marilee Olivas MD [address] [facility] [address], [place], [address] , [employer] [facility] 3 15:02:14 Problem Notes None recorded. Procedures Surgical History Date Name Laterality Status Provider Name and Address Organization Details Recorded Time 021 PARATHYROIDECTOMY (SURG) completed Not Available [facility] 08/23/2022 02:49:34 Cyst Removal completed Not Available [facility] 08/23/2022 02:32:22 Imaging Results Imaging Date Name Status LastModified by Organiz ation Details LastModified Time 11/01/2020 bone density completed [id number] 30 026 [facility] [address], [place], [address], 08/23/2022 02:49:41 11/10/2021 bone density completed [id number] 30 026 [facility] [address], [place], [address], 08/23/2022 02:49:41 Procedure Notes None recorded. Medical Equipment None Reported. Allergies No known drug allergies Medications Name Sig Start Date Stop Date Status Note LastModified by Organization Details LastModified Time atorvasta tin 10 mg tablet TAKE 1 TABLET BY MOUTH EVERY DAY active Not Available Not Available No t Available sumatript an 100 mg tablet TAKE 1 TABLET BY MOUTH AT ONSET OF HEADACH E, CAN REPEAT IN 2 HOURS IF NO RELIEF active Not Available Not Available No t Available alendrona te 70 mg tablet TAKE 1 TAB BY MOUTH WEEKLY active Not Available Not Available No t Available levothyro xine 88 mcg tablet TAKE 1 TABLET BY MOUTH EVERY DAY active Not Available Not Available No t Available hydrocodo ne 7.5 mg-acetam inophen 325 mg tablet TAKE 1 TABLET BY MOUTH EVERY 4 HOURS NEEDED 04/11 completed Not Available Not Available Not Available albuterol sulfate HFA 90 mcg/actua tion aerosol inhaler active Not Available Not Available Not Available sumatript an 6 mg/0.5 mL subcutane ous pen injector active Not Available Not Available Not Available nitrofura ntoin monohydra te/macroc rystals 100 mg capsule TAKE 1 TAB BY MOUTH EVERY 12 HOURS WITH FOOD FOR 7 DAYS 04/11 completed Not Available Not Available Not Available Prolia 60 mg/mL subcutane ous syringe inject 1 CC SQ once weekly every 6 months 2022 active PATIENT TOLERATED INJECTION WELL. NO REDNESS OR TENDERNES S AT SITE OF INJECTION . PATIENT AWARE TO WATCH FOR ANY SIGNS OR SYMPTOMS AND TO CALL US IMMEDIATE LY. PATIENT STAYED AND WAITED HER TIME, ONCE TIME CAME PATIENT LEFT CLINIC. Not Available Not Available Not Available Breo Ellipta 100 mcg-25 mcg/dose powder for inhalatio n active Not Available Not Available Not Available Shingrix (PF) 50 mcg/0.5 mL intramusc ular suspensio n, kit ADM 0.5ML IM UTD active Not Available Not Available No t Available Vitals Date Recorded Body mass index (BMI) Body height Oxygen saturation Oxygen saturation in Arterial blood by Pulse oximetry Heart rate Body temperature Body weight Systolic blood pressure Diastolic blood pressure Provider Name and Address Organization Details Last Updated DateTime 1 23.6 kg/m2 167.64 cm 95 % 95 % 74 /min 98.3 [degF] 53808.4 9 g 128 mm[Hg] 86 mm[Hg] Not Available [facility] 3 02:33:47 Date Recorded Body mass index (BMI) Body height Oxygen saturation Oxygen saturation in Arterial blood by Pulse oximetry Heart rate Body temperature Body weight Systolic blood pressure Diastolic blood pressure Provider Name and Address Organization Details Last Updated DateTime 2 22.7 kg/m2 167.64 cm 97 % 97 % 75 /min 97.8 [degF] 10861.7 3 g 140 mm[Hg] 95 mm[Hg] Not Available [facility] 3 02:33:48 Date Recorded Body mass index (BMI) Body height Oxygen saturation Oxygen saturation in Arterial blood by Pulse oximetry Heart rate Body temperature Body weight Systolic blood pressure Diastolic blood pressure Provider Name and Address Organization Details Last Updated DateTime 2 23 kg/m2 167.64 cm 97 % 97 % 65 /min 97.6 [degF] 55881.9 9 g 120 mm[Hg] 80 mm[Hg] Not Available [facility] 3 02:33:48 Date Recorded Body height Body mass index (BMI) Body weight Body temperature Heart rate Systolic blood pressure Diastolic blood pressure Provider Name and Address Organization Details Last Updated DateTime 3 167.64 cm 23.6 kg/m2 39066.2 g 97.7 [degF] 76 /min 162 mm[Hg] 96 mm[Hg] [place] [facility] 3 14:33:39 Date Recorded Body height Body temperature Provider N bernarda and Address Organization Details Last Updated DateTime 12/27/2022 167.64 cm 97.6 [degF] Frida Bhat[place]STON [place] [facility] 12/27/2022 11:32:02 Social History Question Answer Notes LastModified by Organizat ion Details LastModified Time Tobacco Smoking Status Current Every Day Smoker Not Available [facility] 08/23/2022 02:28:02 What Is Your Level Of Alcohol Consumption? None [id number] Information not available 08/23/2022 What Is Your Level Of Caffeine Consumption? Moderate 1-2 Cups Coffee Daily [id number] Information not available 08/23/2022 How Much Tobacco Do You Chew? None [id number] Information not available 08/23/2022 In The 14 Days Before Symptom Onset, Have You Had Close Contact With A Laboratory-confir med COVID-19 While That Case Was Ill? No [id number] Information not available 08/23/2022 In The 14 Days Before Symptom Onset, Have You Had Close Contact With A Person Who Is Under Investigation For COVID-19 While That Person Was Ill? No [id number] Information not available 08/23/2022 What Type Of Diet Are You Following? REGULAR [id number] Information not available 08/23/2022 Which Illicit Or Recreational Drugs Have You Used? None [id number] Information not available 08/23/2022 Do You Or Have You Ever Used E-cigarettes Or Vape? Never Used Electronic Cigarettes [id number] Information not available 08/23/2022 What Is Your Occupation? Retired [id number].[id number] Information not available 08/23/2022 Are You Passively Exposed To Smoke? No [id number].06464 [id number] Information not available 08/23/2022 How Much Tobacco Do You Smoke? 0.5 PPD [id number] Information not available 08/23/2022 Sex: Unknown Functional Status None recorded. Mental Status None recorded. Family History Relationship Description Onset Age of this Age Resolved Age Notes LastModified by Organization Details LastModified Time Mother Malignant melanoma [id number] Not available 08/23/2022 02:32:24 Medical History Condition Response PARATHYROID DISEASE Y GERD/NAUSEA Y Gynecological HistoryNo gynecological history recorded. Obstetrics History GPAL:G 0 P 0 0 0 0 Past Encounters Encounter ID Performer Location Encounter Start Date Encounter Closed Date Diagnosis/Indication Diagnosis SNOMED-CT Code Diagnosis ICD10 Code Diagnosis Note [id number] [facility] [address] [place] [address] 09/27/2020 00:00:00 09/27/2020 12:18:59 [id number] [facility] [address] [place] [address] 11/16/2020 00:00:00 11/16/2020 12:54:35 [id number] [facility] [place] [address] [place] [address] 11/18/2020 00:00:00 11/18/2020 11:21:12 [id number] [facility] [place] [address] [place] [address] 12/13/2020 00:00:00 12/13/2020 13:01:36 [id number] [facility] [place] [address] [place] [address] 02/10/2021 00:00:00 02/10/2021 12:49:58 [id number] [facility] [place] [address] [place] [address] 04/11/2021 00:00:00 04/11/2021 11:12:19 [id number] [facility] [place] [address] [place] [address] 10/18/2021 00:00:00 10/18/2021 13:37:09 [id number] [facility] [address] [place] [address] 04/07/2022 00:00:00 04/07/2022 13:41:52 [id number] Marilee Olivas MD [facility] [address] [place] [address] 12/12/2022 14:17:17 12/12/2022 15:10:02 Hypothyroidism 53926107 E03.9 TFTs in range- continue on LT4 88 mcg daily along with LT3 5 mcg twice daily. She was reminded to take her LT4 on empty stomach with glass of water and wait one hour to eat or have her coffee in morning and up to 4 hours if ever taking any heartburn or reflux medication s to help optimize absorption . Discussed paleo like diet with restrictio n of GMOs to help with energy and to optimize absorption of vitamins and minerals and reduce inflammati on. Postmenopa usal osteoporosis 980202050 M81.0 bone density from October 2021 did not show improvemen t from her 2020 scan- she has been on alendronat e for close to 3.5 years now with little improvemen t- had parathyroi dectomy in 2020- recommende d patient transition to prolia injections for better tolerabili ty and due to not having improvemen t while on alendronat e. Recommende d continued intake of calcium/ci tracal 1200 mg daily in combinatio n with vit D 3 800 IU daily for bone and immune health. Loose stool 377080255 R1 9.5 Send for fecal fat and elastase to screen for EPI and malabsorpt ion. Spent up to 28 minutes preparing to see the patient (eg, review of tests), obtaining and/or reviewing separately obtained history, performing a medically appropriat e examinatio n and evaluation , counseling and educating the patient, ordering medication s, tests, along with documentin g clinical informatio n in the electronic health record, independen tly interpreti ng results and communicat ing results to the patient. RTC in 6 months. Patient was provided a handwritte n lab order which contains our fax number. If she chooses to go outside of the [facility] system to obtain labwork she was advised to provide our fax number and my informatio n to the lab she will be obtaining labwork from in order to have her labs properly forwarded over for me to review so there is no loss of follow up due to use of outside network. She was also advised to contact our clinic informing us that she has completed her labwork so we are aware we will need to reach out to the appropriat e laboratory to request her results be forwarded to us so I might have the ability to review and make further medical decision making in her case. She voiced understand ing. [id number] Marilee Olivas MD [facility] [place] [address] [place] [address] 12/27/2022 10:51:49 12/27/2022 11:35:44 Postmenopausal osteoporosis 608118895 M81.0 Patient tolerated prolia injetion without pain or side effect. Return in 6 months for repeat injection. Health Concerns Section Related Observation LastModified by Organization Detai ls LastModified Time None Recorded Concern Status LastModified by Organization Details LastModified Time None Recorded Advance Directives Directive None Recorded Payers Encounter Date Sequence Insurance Name Policy Number Policy Finch Covered Member ID Finch Member ID Guarantor Name 12/12/2022 1 [facility] (MEDICARE REPLACEMENT/A DVANTAGE - HMO) [id number] Arabella Zamora [id number] Arabella Zamora 12/27/2022 1 [facility] (MEDICARE REPLACEMENT/A DVANTAGE - HMO) [id number] Arabella Zamora [id number] Arabella Zamora Notes Date Note Type Note Provider Name and Address Organization Details Recorded Time 3 text/html 66 yo female comes in for follow up in management of primary hyperparathyroidism s/p parathyroidectomy, hypothyroidism along with osteoporosis. last seen in Mar at that time we continued LT4 88 mcg daily, alendronate 70 mg weekly, and D3 5000IU once daily. S/P parathyroidectomy from January 2021 She has no issues with recent falls or fractures and feels she has overall improvement since surgery. She has no hx of kidney stones. she does get some loose stools on occasion and feels bloated often. She will have flares and not sure what contributes- did stop eating nuts and not sure if this was the cause. She avoids milk due to GI upset but she is not gluten free. She does continue to smoke regularly. last bone density from October 2021:T score of -3.0 of LST Score of -3.3 of left femoral neckT score of -3.5 of right femoral neck bone density scan from 11/01/20:T score of -3.0 of LST score of -3.4 of right femoral neckT score of -3.8 of left femoral neck labs from 12/15:TSH of 3.64 uIU/mlFT4 of 1.5 ng/dLFT3 of 3.1 pg/MLvit D 86 ng/MLPTH 18 pg/mL with calcium 9.2 mg/dLglucose 86 mg/dLCr normalLFT normal Marilee Olivas MD [address], [place], [address], [employer] [facility] [employer] [facility] 12/12/2022 16:26:30 3 text/html 66 yo female comes in for prolia injection in management of postmenopausal osteoporosis. Marilee Olivas MD [address], [place], [address], [employer] [facility] 12/27/2022 17:22:02 OBGyn Episode No OBEpisode recorded.
== END 2024-07-22 10:11 | disposition home or self-care (01) ==
LOC: ANHIMG 10:11
PROVIDERS: PCP Family Medicine; Visit Provider Nurse Practitioner
DX: Z12.31 Encounter for screening mammogram for malignant neoplasm of breast (principal); R92.8 Other abnormal and inconclusive findings on diagnostic imaging of breast
CPT/HCPCS: 77063; 77067

== ENCOUNTER 2024-08-14 11:28 | Outpatient (CLI) | payer MEDICARE, SELFPAY ==
--- NOTE | ~2024-08-14 | MMUS_ITS ---
EXAMINATION: US breast RT complete, MM diagnostic josias RT w stuart HISTORY: New right breast masses. TECHNIQUE: Additional 3-D tomosynthesis images of the right breast were performed and synthetic 2-D i mages were generated. CAD analysis was submitted and interpreted. High resolution complete right angela st ultrasound was performed. COMPARISON: Comparison to multiple prior studies sequentially, with oldest reviewed study dated 06/2019. BREAST PARENCHYMAL COMPOSITION: Not dense: There are scattered areas of fibroglandular density. FINDINGS: MAMMOGRAPHIC FINDINGS: There are multiple small scattered masses of the right breast which are persistent with spot compress ion and mediolateral views. ULTRASOUND: Complete US of all 4 quadrants of the right breast/s and retroareolar region was reviewed. There are multiple cysts of the right breast, largest measuring 5 mm. Mildly prominent subareolar ducts. IMPRESSION: 1. No evidence for malignancy in the right breast. Benign findings. 2. Routine yearly screening mammogram and regular clinical breast examination are recommended. BI-RADS Category 2: Benign finding(s). Reviewed, dictated and finalized at location B. FARMERS IMPRESSION: 1. No evidence for malignancy in the right breast. Benign findings. 2. Routine yearly screening mammogram and regular clinical breast examination a re recommended. BI-RADS Category 2: Benign finding(s).
--- OUTSIDE RECORDS SUMMARY | 2024-08-14 11:50 | XMS_ITS | Referral Summary ---
Author Organization [facility] Address [address] [place] [id number] Care Team Providers Care Organic Section Technical Lead Name Role Phone Pcp, No Primary Care [...] 84 03/03/2013 12:05 PM CDT Temperature 36.6 C (97.8 F) 03/03/2013 12:05 PM CDT Respiratory Rate - - Oxygen Saturation 97% 03/03/2013 12:05 PM CDT Inhaled Oxygen Concentration - - Weight 65.8 kg (145 lb) 03/03/2013 12:05 PM CDT Height 167.6 cm (5' 6 ) 03/03/2013 12:05 PM CDT Body Mass Index 23.4 03/03/2013 12:05 PM CDT Plan of Treatment Not on file Care Teams Organic Section Technical Lead Relationship Specialty Start Date End Date Pcp, No PCP - General 03/03/13
--- OUTSIDE RECORDS SUMMARY | 2024-08-14 11:50 | XMS_ITS | Clinical Summary ---
Author Organization [facility] Address [address] [place] [address] [place] [address] Care Team Providers Care Viscose Cellar Worker Name Role Phone Unavailable Primary Care Provider [...]
--- OUTSIDE RECORDS SUMMARY | 2024-08-14 11:50 | XMS_ITS | Clinical Summary ---
Author Organization [facility] Address [address] [place] [id number] Care Team Providers Care Short Order Cook Name Role Phone Pcp, No Primary Care [...] age to complete this topic Care Teams Short Order Cook Relationship Specialty Start Date End Date Pcp, No PCP - General 03/03/13
== END 2024-08-14 11:29 | disposition home or self-care (01) ==
LOC: ANHIMG 11:29
PROVIDERS: PCP Family Medicine; Visit Provider Nurse Practitioner
DX: R92.8 Other abnormal and inconclusive findings on diagnostic imaging of breast (principal)
CPT/HCPCS: 76641; 77061; 77065; G0279

== ENCOUNTER 2024-08-25 09:22 | Outpatient (CLI) | payer MEDICARE, SELFPAY ==
[2024-08-25 13:59] LABS: Hematocrit 46.3 % (37.0-47.0); Hemoglobin 15.3 g/dL (12.0-15.0); Mean Corpuscular Hemoglobin 31.2 pg (26-34); Mean Corpuscular Volume 94.5 fl (80-100); Mean Platelet Volume 9.4 fl (7.4-10.4); Platelet Count Result 273 k/mm3 (150-375); Red Cell Distribution Width 13.4 % (11.5-14.5); White Blood Count 9.6 K/mm3 (4.5-10.0)
[2024-08-25 16:24] LABS: Alanine Aminotransferase 39 U/L (6-35); Albumin Level 4.3 g/dL (3.5-5.1); Alkaline Phosphatase 56 U/L (38-126); Anion Gap 8 mmol/L (4-12); Aspartate Amino Transferase 66 U/L (14-36); Bilirubin,Total 0.5 mg/dL (0.2-1.3); Blood Urea Nitrogen 21 mg/dL (7-17); Calcium 8.9 mg/dL (8.4-10.2); Carbon Dioxide 28 mmol/L (22-30); Chloride 99 mmol/L (98-107); Cholesterol 157 mg/dL (0-200); Estimated Glomerular Filt Rate > 60; Glucose 89 mg/dL (65-110); HDL Direct 64 mg/dL; Potassium 4.2 mmol/L (3.4-5.0); Sodium 135 mmol/L (137-145); Triglycerides 79 mg/dL (<150)
[2024-08-25 16:37] LABS: LDL Cholesterol Direct 58 mg/dL
[2024-08-25 19:36] LABS: Free T4 Free Thyroxine 2.02 ng/dL (0.78-2.19); Vitamin D 25 Hydroxy 63.6 ng/mL
== END 2024-08-25 09:23 | disposition home or self-care (01) ==
LOC: ANHGOSHLAB 09:26
PROVIDERS: PCP Family Medicine; Visit Provider Internal Medicine
DX: E78.00 Pure hypercholesterolemia, unspecified (principal); E55.9 Vitamin D deficiency, unspecified; E21.0 Primary hyperparathyroidism; E03.9 Hypothyroidism, unspecified
CPT/HCPCS: 36415; 80053; 80061; 82306; 84439; 84443; 85027

== ENCOUNTER 2024-09-01 09:35 | Outpatient (CLI) | payer MEDICARE, SELFPAY ==
--- OUTSIDE RECORDS SUMMARY | 2024-09-01 10:50 | XMS_ITS | Clinical Summary ---
Author Organization [facility] Address [address] [place] [address] [address] Care Team Providers Care Artists' Model Name Role Phone Unavailable Primary Care Provider [...] Colonography Q 5 years 12/29/1999 PNEUMOCOCCAL VACCINE 50+ YEARS (1 of 1 - PCV) 12/29/19 [...]
[2024-09-01 14:24] LABS: Alanine Aminotransferase 29 U/L (6-35); Albumin Level 4.3 g/dL (3.5-5.1); Alkaline Phosphatase 54 U/L (38-126); Aspartate Amino Transferase 42 U/L (14-36); Bilirubin,Total 0.4 mg/dL (0.2-1.3)
== END 2024-09-01 09:36 | disposition home or self-care (01) ==
PROVIDERS: PCP Family Medicine; Visit Provider Family Medicine
DX: R74.8 Abnormal levels of other serum enzymes (principal); Z79.899 Other long term (current) drug therapy
CPT/HCPCS: 36415; 80076

== ENCOUNTER 2024-12-18 12:03 | Outpatient (CLI) | payer MEDICARE, SELFPAY ==
--- NOTE | ~2024-12-18 | XR_ITS ---
HISTORY: M[age] - Dorsalgia, unspecified COMPARISON: None TECHNIQUE: 3 views of the thoracic spine were performed FINDINGS: No acute compression fracture is present. Bone mineralization is age-appropriate. No significant degenerative disease. IMPRESSION: No significant degenerative disease within the thoracic spine, as detailed above. Reviewed, dictated and finalized at location A.
--- NOTE | ~2024-12-18 | XR_ITS ---
EXAM/PROCEDURE: XR chest 2V - 12/18/2024 12:08 CDT HISTORY: 68 years old Female with R52 - Pain, unspecified TECHNIQUE: Two view(s) of the chest. COMPARISON: None available. FINDINGS: LUNGS/ PLEURA: Lungs are hyperinflated with flattening of the diaphragm and increased lung markings i n both upper lobes, findings seen with COPD. No focal consolidation. No appreciable pneumothorax or l arge pleural effusion. HEART/ MEDIASTINUM: Heart appears normal in size. BONES: No acute osseous abnormality. OTHER: Visualized upper abdomen is unremarkable. IMPRESSION: No acute process. COPD. Reviewed, dictated and finalized at location A. IMPRESSION: No acute process. COPD.
--- NOTE | ~2024-12-18 | XR_ITS ---
3 VIEWS LUMBAR SPINE Ordering provider: Shama Grimes NP-C History: . M54.9 - Dorsalgia, unspecified . Comparison: 2007 FINDINGS: VERTEBRAL BODIES: Loss of height is seen in L2 which is unchanged. Mild dextroscoliosis. Degenerative changes of the spine. No visible fracture or subluxation. DISK SPACES: Degenerative disc disease at the level of L4-L5 and L5-S1. SOFT TISSUES: Aortic atherosclerotic changes. IMPRESSION: No acute osseous abnormality lumbar spine. Chronic loss of height of L2 is noted. Degenerative disc disease at the level of L4-5 and L5-S1. Reviewed, dictated and finalized at location A.
== END 2024-12-18 12:04 | disposition home or self-care (01) ==
LOC: GOSHIMG 12:03
PROVIDERS: PCP Nurse Practitioner; Visit Provider Nurse Practitioner
DX: R29.890 Loss of height (principal); M51.369 Other intervertebral disc degeneration, lumbar region without mention of lumbar back pain or lower extremity pain; M51.379 Other intervertebral disc degeneration, lumbosacral region without mention of lumbar back pain or lower extremity pain
CPT/HCPCS: 71046; 72072; 72100

== ENCOUNTER 2024-12-31 14:01 | Outpatient (CLI) | payer MEDICARE, SELFPAY ==
--- NOTE | ~2024-12-31 | DEXA_ITS ---
Bone Density Report Name: LASHA DIAZ Age: 69 Sex: Female Ethnicity: White Date of : 1955 Indication: postmenopausal osteoporosis; prior fracture; Referring Provider: ROBYN ALLISON Study: Bone densitometry was performed. Exam Date: December 31, 2024 Accession number: [id number] Bone Density: Region BMD T-score Z-score Classification AP Spine(L1-L4) 0.783 -2.4 -0.3 Osteopenia Femoral Neck (Left) 0.513 -3.0 -1.2 Osteoporosis Total Hip (Left) 0.750 -1.6 -0.1 Osteopenia Femoral Neck (Right) 0.469 -3.4 -1.6 Osteoporosis Total Hip (Right) 0.720 -1.8 -0.3 Osteopenia Total Hip Mean 0.735 -1.7 -0.2 Osteopenia World Health Organization criteria for BMD impression classify patients as: Normal (T-score at or above -1.0), Osteopenia (T-score between -1.0 and -2.5), or Osteoporosis (T-score at or below -2.5). 10-year Fracture Risk: FRAX not reported because: Some T-score for Spine Total or Hip Total or Femoral Neck at or below -2.5 Prior hip or vertebral fracture Previous Exams: Region Exam Age BMD T-score BMD Change BMD Change Date g/cm2 vs Baseline vs Previous AP Spine (L1-L4) 12/31/2024 69 0.783 -2.4 0.079 (11.2%)* 0.014 (1.8%) 11/13/2023 67 0.769 -2.5 0.065 (9.2%)* 0.057 (8.0%)* 11/01/2020 64 0.712 -3.0 0.008 (1.1%) 0.008 (1.1%) 10/11/2017 61 0.704 -3.1 Total Hip(Left) 12/31/2024 69 0.750 -1.6 0.010 (1.4%) -0.030 (-3.8%) 11/13/2023 67 0.780 -1.3 0.040 (5.4%)* 0.024 (3.2%) 11/01/2020 64 0.755 -1.5 0.015 (2.1%) 0.015 (2.1%) 10/11/2017 61 0.740 -1.7 Total Hip(Right) 12/31/2024 69 0.720 -1.8 0.052 (7.8%)* -0.025 (-3.4%) 11/13/2023 67 0.745 -1.6 0.077 (11.6%)* 0.091 (14.0%)* 11/01/2020 64 0.654 -2.4 -0.014 (-2.1%) -0.014 (-2.1%) 10/11/2017 61 0.668 -2.2 *Denotes significance at 95% confidence level, LSC for AP Spine = 0.022 g/cm2, LSC for Total Hip = 0.027 g/cm2 Clinical Information Provided by Patient: Have had a previous hip or vertebral fracture Has had a low trauma fracture Smokes Has used the following medications: Prolia (i.e. denosumab), Calcium Patient maximum height was 66.0 Menopause Age: 49 Does not regularly consume dairy products Drinks caffeinated beverages Onset of menses at age 11 Number of children 2 Impression: The patient has established osteoporosis, based on the Right Femoral Neck T-score and the existence of a prior fracture. The patient has risk factors, including: smoking, previous fracture. The BMD for the Total Hip(Left) decreased, changing by -3.8% since the last DXA exam. Discussion: HIGH RISK OF FRACTURE. BONE DENSITY IS UNDESIRABLY LOW AT ONE OR MORE SKELETAL SITES, CONSISTENT WITH POSTMENOPAUSAL OSTEOPOROSIS. This patient's lowest T-score, in a patient who has previously fractured, meets the World Health Organization's (WHO) criteria for severe osteoporosis. In untreated patients, the risk of osteoporotic fracture increases approximately two-fold for each 1.0 SD decrease in T-score. Low bone density is not the only risk factor for fracture; also consider factors such as patient's age, frailty or poor health, risk of falling, risk of injury, previous osteoporotic fracture, family history of osteoporosis, cigarette smoking, low body weight, etc. Not everyone with low bone mineral density has osteoporosis; osteomalacia and other metabolic bone disorders should also be considered. Patients who have osteoporosis should be evaluated for specific diseases and conditions (secondary causes) that may cause or contribute to bone loss. The [place] Association of Clinical Endocrinologists (AACE) and National Osteoporosis Foundation (NOF) recommend pharmacologic intervention for all postmenopausal women with a previous hip or vertebral fracture and a T-score in this range. The patient should follow a healthful lifestyle (good nutrition with adequate calcium and vitamin D, and appropriate weight-bearing exercise). Follow-Up: Consider a repeat BMD and Vertebral Fracture Assessment (VFA) exam in 2 years or sooner if medically necessary, to reassess this patient's status. Reported by: CHEMO on 12/31/2024 2:46:00 PM. Reviewed, dictated and finalized at location A.
--- OUTSIDE RECORDS SUMMARY | 2024-12-31 14:19 | XMS_ITS | Clinical Summary ---
Author Organization [facility] Address [address] [place] [address] [place] [address] Care Team Providers Care Line Producer Name Role Phone Unavailable Primary Care Provider [...] 2004 OSTEOPOROSIS SCREENING 12/29/2019 INFLUENZA VACCINE (#1) 2025 RSV VACCINE (60+ or ) (1 - 1-dose 75+ series) 2029 Insurance RX [employer] RX Member Subscriber Plan / Payer (Ef fective 2022-Present) Name:Arabella Zamora Relation to Subscriber:Self Name:Arabella Zamora Subscriber ID:Not on file Payer ID:Not on file Group ID:[id number] Type:RX Medicare Part D Address: [address]
--- OUTSIDE RECORDS SUMMARY | 2024-12-31 14:19 | XMS_ITS | Data Portability ---
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 Plan of Treatment Reminders Order Date Submit Date Provider Last Modified By Organization Details Last Modified Time Details Appointments None recorded. Lab fecal fat, qualitative , stool 2022 023 [facility], [address], [place], [address], 3 15:04:04 celiac disease comprehensi ve panel, serum 2022 023 [facility], [address], [place], [address], 3 15:04:06 pancreatic elastase, stool 2022 023 [facility], [address], [place], [address], 3 15:04:06 food allergen panel, serum 2022 023 [facility] [place], [address], 3 15:04:00 vitamin D, 25-hydroxy, total, serum 2022 023 [facility], [place], [address], 3 15:04:05 CMP, serum or plasma 2022 023 [facility], [address], [place], [address], 3 15:04:07 PTH (parathyroi d hormone), intact + calcium, serum or plasma 2022 023 [facility], [address], [place], [address], 3 15:04:01 phosphorus, serum or plasma 2022 023 [facility], [address], [place], [address], 3 15:04:02 TSH + free T4, serum 2022 023 [facility], [address], [place], [address], 3 15:04:04 T3, free, serum or plasma 2022 023 [facility], [address], [place], [address], 3 15:04:03 vitamin B12 + folate, serum or blood 2022 023 [facility], [address], [place], [address], 3 15:04:03 Referral None recorded. Procedures None recorded. Surgeries None recorded. Imaging None recorded. Medication Orders Prolia 60 mg/mL subcutaneou s syringe 2022 023 [id number], [address] [place], [address], 3 16:52:38 Prolia 60 mg/mL subcutaneou s syringe 2022 023 [facility] [address] [place], [address], [place], [place], [id number], 15:02:52 Patient TargetsNo targets recorded. Patient InstructionsNo instructions recorded. Reason for Referral None Reported. Results Created Date Observation Date Name Description Value Unit Range Abnormal Flag Note LastModifiedBy Organization Detail LastModifiedTime 04/02/2004/04/2021 VITAM IN D,25- OH,TO DELVIS,I A vitamin [...] /MS is recom lakshmi d: order code 84058 (marissa ents >2yrs ). See Note 1 Note 1 For addit ional infor hawa beal refer to http: //[facility] desiree reilly.Ravinder stDia gnost ics.c om/fa q/FAQ 199 (This link is being provi ded for infor kevin gifford/ gloria orozco purpo ses only. ) Not Available [facility] [address] [place], [address], 04/04/2021 15:00:06 04/02/2004/04/2021 COMPR EHENS VIANCA METAB OLIC PANEL glucose 96 mg/dL 65-99 normal Fasti ng refer ence inter dominguez Not Available [facility] [address] [place], [address], 04/04/2021 15:00:06 04/02/20 21 04/04/2021 COMPR EHENS VIANCA METAB OLIC PANEL urea nitrogen (BUN) 19 mg/dL 7-25 normal Not Available [address], [address], 04/04/2021 15:00:06 04/02/20 21 04/04/2021 COMPR EHENS VIANCA METAB OLIC PANEL creatinine 0.99 mg/dL 0.50-0 .99 normal For patie nts >49 years of age, the refer ence limit for Creat inine is appro ximat mihai 13% highe r for peopl e ident ified as Afric an-Am shani n. Not Available [address], [address], 04/04/2021 15:00:06 04/02/20 21 04/04/2021 COMPR EHENS VIANCA METAB OLIC PANEL eGFR non-afr. samoan 59 mL/mi n/1.7 3m2 > or = 60 low Not Available [address] [address] [place], [address], 04/04/2021 15:00:06 04/02/20 21 04/04/2021 COMPR EHENS VIANCA METAB OLIC PANEL eGFR 69 mL/mi n/1.7 3m2 > or = 60 normal Not Available [address], [address], 04/04/2021 15:00:06 04/02/20 21 04/04/2021 COMPR EHENS VIANCA METAB OLIC PANEL BUN/creatini ne ratio not applic able (calc ) 6-22 Not Available [address], [address], 04/04/2021 15:00:06 04/02/20 21 04/04/2021 COMPR EHENS VIANCA METAB OLIC PANEL sodium 139 mmol/ L 135-14 6 normal Not Available [address], [address], 04/04/2021 15:00:06 04/02/20 21 04/04/2021 COMPR EHENS VIANCA METAB OLIC PANEL potassium 4.3 mmol/ L 3.5-5. 3 normal Not Available [address], [address], 04/04/2021 15:00:06 04/02/20 21 04/04/2021 COMPR EHENS VIANCA METAB OLIC PANEL chloride 104 mmol/ L 98-110 normal Not Available [address], [address], 04/04/2021 15:00:06 04/02/20 21 04/04/2021 COMPR EHENS VIANCA METAB OLIC PANEL carbon dioxide 28 mmol/ L 20-32 normal Not Available [address], [address], 04/04/2021 15:00:06 04/02/20 21 04/04/2021 COMPR EHENS VIANCA METAB OLIC PANEL calcium 9.0 mg/dL 8.6-10 .4 normal Not Available [address], [address], 04/04/2021 15:00:06 04/02/20 21 04/04/2021 COMPR EHENS VIANCA METAB OLIC PANEL protein, total 6.5 g/dL 6.1-8. 1 normal Not Available [address], [address], 04/04/2021 15:00:06 04/02/20 21 04/04/2021 COMPR EHENS VIANCA METAB OLIC PANEL albumin 4.1 g/dL 3.6-5. 1 normal Not Available [address], [address], 04/04/2021 15:00:06 04/02/20 21 04/04/2021 COMPR EHENS VIANCA METAB OLIC PANEL globulin 2.4 g/dL_ (calc ) 1.9-3. 7 normal Not Available [address], [address], 04/04/2021 15:00:06 04/02/20 21 04/04/2021 COMPR EHENS VIANCA METAB OLIC PANEL albumin/glob ulin ratio 1.7 (calc ) 1.0-2. 5 normal Not Available [address], [address], 04/04/2021 15:00:06 04/02/20 21 04/04/2021 COMPR EHENS VIANCA METAB OLIC PANEL bilirubin, total 0.4 mg/dL 0.2-1. 2 normal Not Available [address], [address], 04/04/2021 15:00:06 04/02/20 21 04/04/2021 COMPR EHENS VIANCA METAB OLIC PANEL alkaline phosphatase 55 U/L 37-153 normal Not Available [address], [address], 04/04/2021 15:00:06 04/02/20 21 04/04/2021 COMPR EHENS VIANCA METAB OLIC PANEL AST 17 U/L 10-35 normal Not Available [address], [address], 04/04/2021 15:00:06 04/02/20 21 04/04/2021 COMPR EHENS VIANCA METAB OLIC PANEL ALT 14 U/L 6-29 normal Not Available [address], [address], 04/04/2021 15:00:06 04/02/20 21 04/04/2021 PHOSP HATE ( PHOSP HORUS ) phosphate ( phosphorus) 4.2 mg/dL 2.1-4. 3 normal Not Available [address], [address], 04/04/2021 15:00:05 04/02/20 21 04/04/2021 PTH, INTAC [...] or Low Carla l High Not Available [facility] [address] [place], [address], 04/04/2021 15:00:05 04/02/20 21 04/04/2021 PTH, INTAC T AND CALCI UM calcium 9.0 mg/dL 8.6-10 .4 normal Not Available [facility] [address] [place], [address], 04/04/2021 15:00:05 09/22/19 22 09/22/2021 VITAM IN [...] /MS is recom lakshmi d: order code 39607 (marissa ents >2yrs ). See Note 1 Note 1 For addit ional infor hawa beal e refer to http: //kailee Modi gnost ics.c om/fa q/FAQ 199 (This link is being provi ded for infor kevin gifford/ gloria orozco purpo ses only. ) Not Available [address], [address], 09/22/2021 07:15:21 09/22/19 22 09/22/2021 T3, FREE T3, free 3.0 pg/mL 2.3-4. 2 normal Not Available [address], [address], 09/22/2021 07:15:20 09/22/19 22 09/22/2021 PHOSP HATE ( PHOSP HORUS ) phosphate ( phosphorus) 4.4 mg/dL 2.1-4. 3 high Not Available [address], [address], 09/22/2021 07:15:19 09/22/19 22 09/22/2021 PTH, INTAC [...] or Low Carla l High Not Available [address], [address], 09/22/2021 07:15:17 09/22/19 22 09/22/2021 PTH, INTAC T AND CALCI UM calcium 9.5 mg/dL 8.6-10 .4 normal Not Available [address], [address], 09/22/2021 07:15:17 09/22/19 22 09/22/2021 TSH TSH 1.72 mIU/L 0.40-4 .50 normal Not Available [address], [address], 09/22/2021 10:57:05 09/22/19 22 09/22/2021 TSH copy received from: [facility] ADMN [address] [place] [address] Not Available [address], [address], 09/22/2021 10:57:05 09/22/19 22 09/22/2021 T4, FREE T4, free 1.5 NG/dL 0.8-1. 8 normal Not Available [address], [address], 09/22/2021 10:57:05 09/22/19 22 09/22/2021 T4, FREE copy [facility]: [facility] ADMN [address] [place] [address] Not Available [address], [address], 09/22/2021 10:57:05 09/22/19 22 09/22/2021 CBC (H/H, RBC, INDIC ES, WBC, PLT) white blood cell count 5.5 thous and/u L 3.8-10 .8 normal Not Available [address], [address], 09/22/2021 10:57:04 09/22/19 22 09/22/2021 CBC (H/H, RBC, INDIC ES, WBC, PLT) red blood cell count 4.95 loretta on/uL 3.80-5 .10 normal Not Available [address], [address], 09/22/2021 10:57:04 09/22/19 22 09/22/2021 CBC (H/H, RBC, INDIC ES, WBC, PLT) hemoglobin 15.1 g/dL 11.7-1 5.5 normal Not Available [address], [address], 09/22/2021 10:57:04 09/22/19 22 09/22/2021 CBC (H/H, RBC, INDIC ES, WBC, PLT) hematocrit 45.0 % 35.0-4 5.0 normal Not Available [address], [address], 09/22/2021 10:57:04 09/22/19 22 09/22/2021 CBC (H/H, RBC, INDIC ES, WBC, PLT) MCV 90.9 fL 80.0-1 00.0 normal Not Available [address], [address], 09/22/2021 10:57:04 09/22/19 22 09/22/2021 CBC (H/H, RBC, INDIC ES, WBC, PLT) MCH 30.5 pg 27.0-3 3.0 normal Not Available [address], [address], 09/22/2021 10:57:04 09/22/19 22 09/22/2021 CBC (H/H, RBC, INDIC ES, WBC, PLT) MCHC 33.6 g/dL 32.0-3 6.0 normal Not Available [address], [address], 09/22/2021 10:57:04 09/22/19 22 09/22/2021 CBC (H/H, RBC, INDIC ES, WBC, PLT) RDW 12.7 % 11.0-1 5.0 normal Not Available [address], [address], 09/22/2021 10:57:04 09/22/19 22 09/22/2021 CBC (H/H, RBC, INDIC ES, WBC, PLT) platelet count 279 thous and/u L 140-40 0 normal Not Available [address], [address], 09/22/2021 10:57:04 09/22/19 22 09/22/2021 CBC (H/H, RBC, INDIC ES, WBC, PLT) MPV 9.8 fL 7.5-12 .5 normal Not Available [address], [address], 09/22/2021 10:57:04 09/22/19 22 09/22/2021 CBC (H/H, RBC, INDIC ES, WBC, PLT) copy received from: EMI SANDERSON [facility]UL [facility] ADMN [address] [place] [address] Not Available [address], [address], 09/22/2021 10:57:04 09/22/19 22 09/22/2021 COMPR EHENS VIANCA METAB OLIC PANEL glucose 84 mg/dL 65-99 normal Fasti ng refer ence inter dominguez Not Available [facility] [address], [address], 09/22/2021 10:57:04 09/22/19 22 09/22/2021 COMPR EHENS VIANCA METAB OLIC PANEL urea nitrogen (BUN) 21 mg/dL 7-25 normal Not Available [address], [address], 09/22/2021 10:57:04 09/22/19 22 09/22/2021 COMPR EHENS VIANCA METAB OLIC PANEL creatinine 0.95 mg/dL 0.50-0 .99 normal For patie nts >49 years of age, the refer ence limit for Creat inine is appro carlot mihai 13% highe r for peopl e ident ified as Afric an-Am shani n. Not Available [address] [address] [place], [address], 09/22/2021 10:57:04 09/22/19 22 09/22/2021 COMPR EHENS VIANCA METAB OLIC PANEL eGFR non-afr. samoan 62 mL/mi n/1.7 3m2 > or = 60 normal Not Available [address] [address] [place], [address], 09/22/2021 10:57:04 09/22/19 22 09/22/2021 COMPR EHENS VIANCA METAB OLIC PANEL eGFR 72 mL/mi n/1.7 3m2 > or = 60 normal Not Available [address] [address] [address] , [place], [address], 09/22/2021 10:57:04 09/22/19 22 09/22/2021 COMPR EHENS VIANCA METAB OLIC PANEL BUN/creatini ne ratio not applic able (calc ) 6-22 Not Available [address] [address] [place], [address], 09/22/2021 10:57:04 09/22/19 22 09/22/2021 COMPR EHENS VIANCA METAB OLIC PANEL sodium 138 mmol/ L 135-14 6 normal Not Available [facility] [address] [address] [place], [address], 09/22/2021 10:57:04 09/22/19 22 09/22/2021 COMPR EHENS VIANCA METAB OLIC PANEL potassium 4.1 mmol/ L 3.5-5. 3 normal Not Available [facility] [address] [address] [place], [address], 09/22/2021 10:57:04 09/22/19 22 09/22/2021 COMPR EHENS VIANCA METAB OLIC PANEL chloride 101 mmol/ L 98-110 normal Not Available [address], [address], 09/22/2021 10:57:04 09/22/19 22 09/22/2021 COMPR EHENS VIANCA METAB OLIC PANEL carbon dioxide 26 mmol/ L 20-32 normal Not Available [address], [address], 09/22/2021 10:57:04 09/22/19 22 09/22/2021 COMPR EHENS VIANCA METAB OLIC PANEL calcium 9.4 mg/dL 8.6-10 .4 normal Not Available [address], [address], 09/22/2021 10:57:04 09/22/19 22 09/22/2021 COMPR EHENS VIANCA METAB OLIC PANEL protein, total 7.0 g/dL 6.1-8. 1 normal Not Available [address], [address], 09/22/2021 10:57:04 09/22/19 22 09/22/2021 COMPR EHENS VIANCA METAB OLIC PANEL albumin 4.5 g/dL 3.6-5. 1 normal Not Available [address], [address], 09/22/2021 10:57:04 09/22/19 22 09/22/2021 COMPR EHENS VIANCA METAB OLIC PANEL globulin 2.5 g/dL_ (calc ) 1.9-3. 7 normal Not Available [address], [address], 09/22/2021 10:57:04 09/22/19 22 09/22/2021 COMPR EHENS VIANCA METAB OLIC PANEL albumin/glob ulin ratio 1.8 (calc ) 1.0-2. 5 normal Not Available [address], [address], 09/22/2021 10:57:04 09/22/19 22 09/22/2021 COMPR EHENS VIANCA METAB OLIC PANEL bilirubin, total 0.6 mg/dL 0.2-1. 2 normal Not Available [address], [address], 09/22/2021 10:57:04 09/22/19 22 09/22/2021 COMPR EHENS VIANCA METAB OLIC PANEL alkaline phosphatase 51 U/L 37-153 normal Not Available [address] [address] [place], [address], 09/22/2021 10:57:04 09/22/19 22 09/22/2021 COMPR EHENS VIANCA METAB OLIC PANEL AST 18 U/L 10-35 normal Not Available [address], [address], 09/22/2021 10:57:04 09/22/19 22 09/22/2021 COMPR EHENS VIANCA METAB OLIC PANEL ALT 13 U/L 6-29 normal Not Available [address], [address], 09/22/2021 10:57:04 09/22/19 22 09/22/2021 COMPR EHENS VIANCA METAB OLIC PANEL copy received from: EMI [facility] [address] [place] [address] Not Available [address], [address], 09/22/2021 10:57:04 09/22/19 22 09/22/2021 LIPID PANEL , STAND NANNETTE chol/HDLC ratio 2.3 (calc ) <5.0 normal Not Available [facility] [address] [address] [place], [address], 09/22/2021 10:57:04 09/22/19 22 09/22/2021 LIPID PANEL , STAND NANNETTE cholesterol, total 149 mg/dL <200 normal Not Available [facility] [address] [place], [address], 09/22/2021 10:57:04 09/22/19 22 09/22/2021 LIPID PANEL , STAND NANNETTE HDL cholesterol 65 mg/dL > or = 50 normal Not Available [facility] [address] [address] [place], [address], 09/22/2021 10:57:04 09/22/19 22 09/22/2021 LIPID PANEL , STAND NANNETTE triglyceride s 62 mg/dL <150 normal Not Available [facility] [address] [address] [place], [address], 09/22/2021 10:57:04 09/22/19 22 09/22/2021 LIPID PANEL , STAND NANNETTE LDL-choleste rol 70 mg/dL _(kat c) normal Refer ence range : <100 Mahenrda able range <100 mg/dL for prima ry preve ntion ; <70 mg/dL for patie nts with CHD or diabe tic patie nts with > or = 2 CHD risk facto rs. LDL-C is now calcu lated using the Alisa n-Hop kins pauline jimenez n, which is a valid ated novel shanthio d cait proctor r accur acy than the Fried chad equat ion in the estim ation of LDL-C . Alisa reilly SS et al. KRISTEN. 2013; 310(1 9): 2061- 2068 (http ://ed ucati on.Qu Brando alvarengas. com/f aq/FA Q164) Not Available [facility] [address] [address], [place], [address], 09/22/2021 10:57:04 09/22/19 22 09/22/2021 LIPID PANEL , STAND NANNETTE non HDL cholesterol 84 mg/dL _(kat c) <130 normal For patie nts with diabe home plus 1 major ASCVD risk facto r, treat ing to a non-H DL-C goal of <100 mg/dL (LDL- C of <70 mg/dL ) is azalea bustos optio n. Not Available [facility] [address] [address] [place], [address], 09/22/2021 10:57:04 09/22/19 22 09/22/2021 LIPID PANEL , STAND NANNETTE copy received from: EMI S[facility]ERSON [facility] [address] [place] [address] Not Available [facility] [address] [address] [place], [address], 09/22/2021 10:57:04 03/16/20 22 03/17/2022 TSH+F REE T4 TSH 3.78 mIU/L 0.40-4 .50 normal Not Available [facility] [address] [address] [place], [address], 03/17/2022 10:28:45 03/16/20 22 03/17/2022 TSH+F REE T4 T4, free 1.4 NG/dL 0.8-1. 8 normal Not Available [facility] [address] [address] [place], [address], 03/17/2022 10:28:45 03/16/20 22 03/17/2022 VITAM IN [...] /MS is recom lakshmi d: order code 70913 (marissa ents >2yrs ). See Note 1 Note 1 For addit ional infor hawa beal e refer to http: //[facility] desiree Cortesia gnost ics.c om/fa q/FAQ 199 (This link is being provi ded for infor kevin gifford/ educwilliams orozco purpo ses only. ) Not Available [address], [address], 03/17/2022 10:28:44 03/16/2003/17/2022 T3, FREE T3, free 2.9 pg/mL 2.3-4. 2 normal Not Available [address], [address], 03/17/2022 10:28:44 03/16/2003/17/2022 COMPR EHENS VIANCA METAB OLIC PANEL glucose 88 mg/dL 65-99 normal Fasti ng refer ence inter dominguez Not Available [address], [address], 03/17/2022 10:28:43 03/16/2003/17/2022 COMPR EHENS VIANCA METAB OLIC PANEL urea nitrogen (BUN) 20 mg/dL 7-25 normal Not Available [address], [address], 03/17/2022 10:28:43 03/16/2003/17/2022 COMPR EHENS VIANCA METAB OLIC PANEL creatinine 0.92 mg/dL 0.50-1 .05 normal Not Available [address], [address], 03/17/2022 10:28:43 03/16/20 22 03/17/2022 COMPR EHENS VIANCA METAB OLIC PANEL eGFR 68 mL/mi n/1.7 3m2 > or = 60 normal The eGFR is based on the CKD-E PI 2020 equat ion. To calcu late the new eGFR from a previ ous Creat inine or Cysta tin C resul t, go to https ://shamar dowell.jac lopez.o gregory/pr ofess ional s/ kdoqi /gfr% 5Fcal culat or Not Available [address] [address] [place], [address], 03/17/2022 10:28:43 03/16/20 22 03/17/2022 COMPR EHENS VIANCA METAB OLIC PANEL BUN/creatini ne ratio not applic able (calc ) 6-22 Not Available [address] [address] [place], [address], 03/17/2022 10:28:43 03/16/20 22 03/17/2022 COMPR EHENS VIANCA METAB OLIC PANEL sodium 137 mmol/ L 135-14 6 normal Not Available [address] [address] [place], [address], 03/17/2022 10:28:43 03/16/20 22 03/17/2022 COMPR EHENS VIANCA METAB OLIC PANEL potassium 4.2 mmol/ L 3.5-5. 3 normal Not Available [facility] [address] [address] [place], [address], 03/17/2022 10:28:43 03/16/20 22 03/17/2022 COMPR EHENS VIANCA METAB OLIC PANEL chloride 102 mmol/ L 98-110 normal Not Available [facility] [address] [address] [place], [address], 03/17/2022 10:28:43 03/16/20 22 03/17/2022 COMPR EHENS VIANCA METAB OLIC PANEL carbon dioxide 29 mmol/ L 20-32 normal Not Available [facility] [address] [address] [place], [address], 03/17/2022 10:28:43 03/16/20 22 03/17/2022 COMPR EHENS VIANCA METAB OLIC PANEL calcium 8.9 mg/dL 8.6-10 .4 normal Not Available [address], [address], 03/17/2022 10:28:43 03/16/2003/17/2022 COMPR EHENS VIANCA METAB OLIC PANEL protein, total 6.9 g/dL 6.1-8. 1 normal Not Available [address], [address], 03/17/2022 10:28:43 03/16/20 22 03/17/2022 COMPR EHENS VIANCA METAB OLIC PANEL albumin 4.3 g/dL 3.6-5. 1 normal Not Available [address], [address], 03/17/2022 10:28:43 03/16/20 22 03/17/2022 COMPR EHENS VIANCA METAB OLIC PANEL globulin 2.6 g/dL_ (calc ) 1.9-3. 7 normal Not Available [address], [address], 03/17/2022 10:28:43 03/16/2003/17/2022 COMPR EHENS VIANCA METAB OLIC PANEL albumin/glob ulin ratio 1.7 (calc ) 1.0-2. 5 normal Not Available [address], [address], 03/17/2022 10:28:43 03/16/20 22 03/17/2022 COMPR EHENS VIANCA METAB OLIC PANEL bilirubin, total 0.6 mg/dL 0.2-1. 2 normal Not Available [address], [address], 03/17/2022 10:28:43 03/16/20 22 03/17/2022 COMPR EHENS VIANCA METAB OLIC PANEL alkaline phosphatase 51 U/L 37-153 normal Not Available [facility] [employer] [address], [address], 03/17/2022 10:28:43 03/16/20 22 03/17/2022 COMPR EHENS VIANCA METAB OLIC PANEL AST 19 U/L 10-35 normal Not Available [address], [address], 03/17/2022 10:28:43 03/16/2003/17/2022 COMPR EHENS VIANCA METAB OLIC PANEL ALT 16 U/L 6-29 normal Not Available [address], [address], 03/17/2022 10:28:43 03/16/2003/17/2022 PHOSP HATE ( PHOSP HORUS ) phosphate ( phosphorus) 3.9 mg/dL 2.1-4. 3 normal Not Available [address], [address], 03/17/2022 10:28:43 03/16/2003/17/2022 PTH, INTAC T AND [...] yroid Hyper calce pavan Low or Low Calra l High Not Available [address], [address], 03/17/2022 10:28:42 03/16/20 03/17/2022 PTH, INTAC T AND CALCI UM calcium 8.9 mg/dL 8.6-10 .4 normal Not Available [address], [address], 03/17/2022 10:28:42 08/31/19 23 08/31/2022 COMPR EHENS VIANCA METAB OLIC PANEL glucose 86 mg/dL 65-99 normal Fasti ng refer ence inter dominguez Not Available [address], [address], 08/31/2022 04:22:09 08/31/1908/31/2022 COMPR EHENS VIANCA METAB OLIC PANEL urea nitrogen (BUN) 20 mg/dL 7-25 normal Not Available [address], [address], 08/31/2022 04:22:09 08/31/19 23 08/31/2022 COMPR EHENS VIANCA METAB OLIC PANEL creatinine 0.98 mg/dL 0.50-1 .05 normal Not Available [address], [address], 08/31/2022 04:22:09 08/31/1908/31/2022 COMPR EHENS VIANCA METAB OLIC PANEL eGFR 63 mL/mi n/1.7 3m2 > or = 60 normal The eGFR is based on the CKD-E PI 2020 equat ion. To calcu late the new eGFR from a previ ous Creat inine or Cysta tin C resul t, go to https ://ww w.jac peraltay.o gregory/ingrid solomon s/ kdoqi /gfr% 5Fcal culat or Not Available [address], [address], 08/31/2022 04:22:09 08/31/19 23 08/31/2022 COMPR EHENS VIANCA METAB OLIC PANEL BUN/creatini ne ratio NOT APPLIC ABLE (calc ) 6-22 Not Available [facility] [place] [address] [address], [place], [address], 08/31/2022 04:22:09 08/31/19 23 08/31/2022 COMPR EHENS VIANCA METAB OLIC PANEL sodium 139 mmol/ L 135-14 6 normal Not Available [address], [address], 08/31/2022 04:22:09 08/31/19 23 08/31/2022 COMPR EHENS VIANCA METAB OLIC PANEL potassium 4.4 mmol/ L 3.5-5. 3 normal Not Available [address], [address], 08/31/2022 04:22:09 08/31/19 23 08/31/2022 COMPR EHENS VIANCA METAB OLIC PANEL chloride 101 mmol/ L 98-110 normal Not Available [address], [address], 08/31/2022 04:22:09 08/31/19 23 08/31/2022 COMPR EHENS VIANCA METAB OLIC PANEL carbon dioxide 32 mmol/ L 20-32 normal Not Available [address], [address], 08/31/2022 04:22:09 08/31/19 23 08/31/2022 COMPR EHENS VIANCA METAB OLIC PANEL calcium 9.0 mg/dL 8.6-10 .4 normal Not Available [address], [address], 08/31/2022 04:22:09 08/31/19 23 08/31/2022 COMPR EHENS VIANCA METAB OLIC PANEL protein, total 7.2 g/dL 6.1-8. 1 normal Not Available [address], [address], 08/31/2022 04:22:09 08/31/19 23 08/31/2022 COMPR EHENS VIANCA METAB OLIC PANEL albumin 4.2 g/dL 3.6-5. 1 normal Not Available [address], [address], 08/31/2022 04:22:09 08/31/19 23 08/31/2022 COMPR EHENS VIANCA METAB OLIC PANEL globulin 3.0 g/dL_ (calc ) 1.9-3. 7 normal Not Available [address], [address], 08/31/2022 04:22:09 08/31/19 23 08/31/2022 COMPR EHENS VIANCA METAB OLIC PANEL albumin/glob ulin ratio 1.4 (calc ) 1.0-2. 5 normal Not Available [address], [address], 08/31/2022 04:22:09 08/31/19 23 08/31/2022 COMPR EHENS VIANCA METAB OLIC PANEL bilirubin, total 0.4 mg/dL 0.2-1. 2 normal Not Available [address], [address], 08/31/2022 04:22:09 08/31/19 23 08/31/2022 COMPR EHENS VIANCA METAB OLIC PANEL alkaline phosphatase 48 U/L 37-153 normal Not Available [address], [address], 08/31/2022 04:22:09 08/31/19 23 08/31/2022 COMPR EHENS VIANCA METAB OLIC PANEL AST 20 U/L 10-35 normal Not Available [address], [address], 08/31/2022 04:22:09 08/31/19 23 08/31/2022 COMPR EHENS VIANCA METAB OLIC PANEL ALT 17 U/L 6-29 normal Not Available [address], [address], 08/31/2022 04:22:09 08/31/19 23 08/31/2022 TSH+F REE T4 TSH 3.63 mIU/L 0.40-4 .50 normal Not Available [facility] [address], [address], 08/31/2022 04:22:10 08/31/19 23 08/31/2022 TSH+F REE T4 T4, free 1.4 NG/dL 0.8-1. 8 normal Not Available [facility] [address], [address], 08/31/2022 04:22:10 12/06/1912/06/2022 PTH, INTAC T AND CALCI UM parathyroid [...] or Low Carla l High Not Available [address], [address], 12/06/2022 04:48:46 12/06/19 23 12/06/2022 PTH, INTAC T AND CALCI UM calcium 9.2 mg/dL 8.6-10 .4 normal Not Available [address], [address], 12/06/2022 04:48:46 12/06/19 23 12/06/2022 COMPR EHENS VIANCA METAB OLIC PANEL glucose 86 mg/dL 65-99 normal Fasti ng refer ence inter dominguez Not Available [address] [address] [place], [address], 12/06/2022 04:48:47 12/06/19 23 12/06/2022 COMPR EHENS VIANCA METAB OLIC PANEL urea nitrogen (BUN) 22 mg/dL 7-25 normal Not Available [address] [address] [place], [address], 12/06/2022 04:48:47 12/06/19 23 12/06/2022 COMPR EHENS VIANCA METAB OLIC PANEL creatinine 0.98 mg/dL 0.50-1 .05 normal Not Available [address], [address], 12/06/2022 04:48:47 12/06/19 23 12/06/2022 COMPR EHENS VIANCA METAB OLIC PANEL eGFR 63 mL/mi n/1.7 3m2 > or = 60 normal The eGFR is based on the CKD-E PI 2020 equat ion. To calcu late the new eGFR from a previ ous Creat inine or Cysta tin C resul t, go to https :[email or web address] [email or web address] solomon s/ kdoqi /gfr% 5Fcal culat or Not Available [address] [address] [place], [address], 12/06/2022 04:48:47 12/06/19 23 12/06/2022 COMPR EHENS VIANCA METAB OLIC PANEL BUN/creatini ne ratio NOT APPLIC ABLE (calc ) 6-22 Not Available [address] [address] [place], [address], 12/06/2022 04:48:47 12/06/19 23 12/06/2022 COMPR EHENS VIANCA METAB OLIC PANEL sodium 140 mmol/ L 135-14 6 normal Not Available [address] [address] [place], [address], 12/06/2022 04:48:47 12/06/19 23 12/06/2022 COMPR EHENS VIANCA METAB OLIC PANEL potassium 4.1 mmol/ L 3.5-5. 3 normal Not Available [address], [address], 12/06/2022 04:48:47 12/06/19 23 12/06/2022 COMPR EHENS VIANCA METAB OLIC PANEL chloride 104 mmol/ L 98-110 normal Not Available [address], [address], 12/06/2022 04:48:47 12/06/1912/06/2022 COMPR EHENS VIANCA METAB OLIC PANEL carbon dioxide 29 mmol/ L 20-32 normal Not Available [address], [address], 12/06/2022 04:48:47 12/06/19 23 12/06/2022 COMPR EHENS VIANCA METAB OLIC PANEL calcium 9.2 mg/dL 8.6-10 .4 normal Not Available [address], [address], 12/06/2022 04:48:47 12/06/19 23 12/06/2022 COMPR EHENS VIANCA METAB OLIC PANEL protein, total 6.8 g/dL 6.1-8. 1 normal Not Available [address], [address], 12/06/2022 04:48:47 12/06/19 23 12/06/2022 COMPR EHENS VIANCA METAB OLIC PANEL albumin 4.0 g/dL 3.6-5. 1 normal Not Available [address], [address], 12/06/2022 04:48:47 12/06/19 23 12/06/2022 COMPR EHENS VIANCA METAB OLIC PANEL globulin 2.8 g/dL_ (calc ) 1.9-3. 7 normal Not Available [address], [address], 12/06/2022 04:48:47 12/06/1912/06/2022 COMPR EHENS VIANCA METAB OLIC PANEL albumin/glob ulin ratio 1.4 (calc ) 1.0-2. 5 normal Not Available [address], [address], 12/06/2022 04:48:47 12/06/19 23 12/06/2022 COMPR EHENS VIANCA METAB OLIC PANEL bilirubin, total 0.6 mg/dL 0.2-1. 2 normal Not Available [address], [address], 12/06/2022 04:48:47 12/06/19 23 12/06/2022 COMPR EHENS VIANCA METAB OLIC PANEL alkaline phosphatase 48 U/L 37-153 normal Not Available [address], [address], 12/06/2022 04:48:47 12/06/1912/06/2022 COMPR EHENS VIANCA METAB OLIC PANEL AST 19 U/L 10-35 normal Not Available [address], [address], 12/06/2022 04:48:47 12/06/19 23 12/06/2022 COMPR EHENS VIANCA METAB OLIC PANEL ALT 15 U/L 6-29 normal Not Available [address], [address], 12/06/2022 04:48:47 12/06/19 23 12/06/2022 PHOSP HATE ( PHOSP HORUS ) phosphate ( phosphorus) 4.5 mg/dL 2.1-4. 3 high Not Available [address], [address], 12/06/2022 04:48:47 12/06/19 23 12/06/2022 T3, FREE T3, free 3.1 pg/mL 2.3-4. 2 normal Not Available [address], [address], 12/06/2022 04:48:48 12/06/19 23 12/06/2022 VITAM IN [...] /MS is recom lakshmi d: order code 05211 (marissa ents >2yrs ). See Note 1 Note 1 For addit ional infor hawa beal refer to http: //kailee Modi gnost ics.c om/fa q/FAQ 199 (This link is being provi ded for infor kevin gifford/ gloria orozco purpo ses only. ) Not Available [address], [address], 12/06/2022 04:48:48 12/06/19 23 12/06/2022 TSH+F REE T4 TSH 3.64 mIU/L 0.40-4 .50 normal Not Available [facility] [address], [address], 12/06/2022 04:48:49 12/06/19 23 12/06/2022 TSH+F REE T4 T4, free 1.5 NG/dL 0.8-1. 8 normal Not Available [facility] [address] [address] [address], [place], [address], 12/06/2022 04:48:49 11/11/19 22 11/10/2021 bone densi ty No observ ation record ed. [id number] [place] [address], [place], [address], 08/23/2022 02:49:41 11/19/19 22 11/01/2020 bone densi ty No observ ation record ed. [id number] [facility] [address], [place], [address], 08/23/2022 02:49:41 Result Notes None recorded. Problems Name Problem SNOMED Code Status Onset Date Resolution Date Notes Provider Name and Address Organization Details Recorded Time Vitamin D deficiency 77188858 Active 2021 Not Available [facility] 3 02:38:19 Primary hyperparathyr oidism 84427616 Active 2021 Not Available [facility] 3 02:38:19 Hypothyroidis m 03749292 Active 2021 Not Available [facility] 3 02:38:19 Osteoporosis 94760557 Active 2021 Not Available [facility] 3 02:38:19 Hyperparathyr oidism 16074831 Active 2020 Not Available [facility] 3 02:38:20 Postmenopausa l osteoporosis 209453048 Active 2022 Marilee Olivas MD [address], [place], [address] , [employer] 3 14:59:52 Loose stool 784538839 Active 2022 Marilee Olivas MD [address], [place], [address] , [employer] [facility] [employer] [facility] 3 15:02:14 Problem Notes None recorded. Procedures Surgical History Date Name Laterality Status Provider Name and Address Organization Details Recorded Time 021 PARATHYROIDECTOMY (SURG) completed Not Available [facility] 08/23/2022 02:49:34 Cyst Removal completed Not Available [facility] 08/23/2022 02:32:22 Imaging Results None recorded. Procedure Notes None recorded. Medical Equipment None [...] Heart rate Body temperature Body weight Systolic And Diastolic Provider Name and Address Organization Details Last Updated DateTime 2 22.7 kg/m2 167.64 cm 97 % 97 % 75 /min 97.8 [degF] 08291.7 3 g 140/95 mm[Hg] Not Available [facility] 3 02:33:48 Date Recorded Body height Body mass index (BMI) Body weight Body temperature Heart rate Systolic And Diastolic Provider Name and Address Organization Details Last Updated DateTime 3 167.64 cm 23.6 kg/m2 22115.2 g 97.7 [degF] 76 /min 162/96 mm[Hg] Glennara Garcia [facility] 3 14:33:39 Date Recorded Body height Body temperature Provider N bernarda and Address Organization Details Last Updated DateTime 12/27/2022 167.64 cm 97.6 [degF] Frida Sriram [facility] 12/27/2022 11:32:02 Date Recorded Body mass index (BMI) Body height Oxygen saturation Oxygen saturation in Arterial blood by Pulse oximetry Heart rate Body temperature Body weight Systolic And Diastolic Provider Name and Address Organization Details Last Updated DateTime 2 23 kg/m2 167.64 cm 97 % 97 % 65 /min 97.6 [degF] 94353.9 9 g 120/80 mm[Hg] Not Available [facility] 3 02:33:48 Date Recorded Body mass index (BMI) Body height Oxygen saturation Oxygen saturation in Arterial blood by Pulse oximetry Heart rate Body temperature Body weight Systolic And Diastolic Provider Name and Address Organization Details Last Updated DateTime 1 23.6 kg/m2 167.64 cm 95 % 95 % 74 /min 98.3 [degF] 46122.4 9 g 128/86 mm[Hg] Not Available [facility] 3 02:33:47 Social History Question Answer Notes LastModified by Organizat ion Details LastModified Time Tobacco Smoking Status Current Every Day Smoker Not Available [facility] 08/23/2022 02:28:02 What Is Your Level Of Caffeine Consumption? Moderate 1-2 Cups Coffee Daily [id number] Information not available 08/23/2022 How Much Tobacco Do You Chew? None [id number] Information not available 08/23/2022 In The 14 Days Before Symptom Onset, Have You Had Close Contact With A Laboratory-confir med COVID-19 While That Case Was Ill? No [id number] Information not available 08/23/2022 In The 14 Days Before Symptom Onset, Have You Had Close Contact With A Person Who Is Under Investigation For COVID-19 While That Person Was Ill? No [id number] Information not available 08/23/2022 What Type Of Diet Are You Following? REGULAR [id number] Information not available 08/23/2022 Which Illicit Or Recreational Drugs Have You Used? None [id number] Information not available 08/23/2022 Are You Passively Exposed To Smoke? No [id number] Information not available 08/23/2022 How Much Tobacco Do You Smoke? 0.5 PPD [id number] Information not available 08/23/2022 Sex: Unknown Functional Status Question Answer Note LastModified by Organizat ion Details LastModified Time What is your level of alcohol consumption? None [id number] Information not available 08/23/2022 What is your occupation? retired [id number] Information not available 08/23/2022 Do you or have you ever used e-cigarettes or vape? Never used electronic cigarettes [id number] Information not available 08/23/2022 Mental Status None recorded. Family History Relationship Description Onset Age of this Age Resolved Age Notes LastModified by Organization Details LastModified Time Mother Malignant melanoma [id number] Not available 08/23/2022 02:32:24 Medical History Condition Response PARATHYROID DISEASE Y GERD/NAUSEA Y Gynecological HistoryNo gynecological history recorded. Obstetrics History GPAL:G 0 P 0 0 0 0 Past Encounters Encounter ID Performer Location Encounter Start Date Encounter Closed Date Diagnosis/Indication Diagnosis SNOMED-CT Code Diagnosis ICD10 Code Diagnosis Note [id number] Marilee Olivas MD [facility] [place] [address] [place] [address] 09/27/2020 00:00:00 09/27/2020 12:18:59 [id number] Marilee Olivas MD [facility] [place] [address] [place] [address] 11/16/2020 00:00:00 11/16/2020 12:54:35 [id number] Dashawn Klein MD [facility] [place] [address] [place] [address] 11/18/2020 00:00:00 11/18/2020 11:21:12 [id number] Dashawn Klein MD [facility] [place] [address] [place] [address] 12/13/2020 00:00:00 12/13/2020 13:01:36 [id number] Dashawn Klein MD [facility] [place] [address] [place] [address] 02/10/2021 00:00:00 02/10/2021 12:49:58 [id number] Marilee Olivas MD [facility] [place] [address] [place] [address] 04/11/2021 00:00:00 04/11/2021 11:12:19 [id number] [facility] [place] [address] [place] [address] 10/18/2021 00:00:00 10/18/2021 13:37:09 [id number] [facility] [place] [address] [place] [address] 04/07/2022 00:00:00 04/07/2022 13:41:52 [id number] Marilee Olivas MD [facility] [place] [address] [place] [address] 12/12/2022 14:17:17 12/12/2022 15:10:02 [facility] 37451790 E03.9 TFTs in range- continue on LT4 [...] and reduce inflammati on. Postmenopa usal osteoporosis 701569461 M81.0 bone density from October 2021 did [...] for bone and immune health. Loose stool 015626835 R1 9.5 Send for fecal fat and [...] she chooses to go outside of the [facility] system to obtain labwork she was [...] in her case. She voiced understand ing. [id number] Marilee Olivas MD [facility] [place] [address] [place] [address] 12/27/2022 10:51:49 12/27/2022 11:35:44 Postmenopausal osteoporosis 034288292 M81.0 Patient tolerated prolia injetion without pain or side effect. Return in 6 months for repeat injection. Health Concerns Section Related Observation LastModified by Organization Detai ls LastModified Time None Recorded Concern Status LastModified by Organization Details LastModified Time None Recorded Advance Directives Directive None Recorded Payers Insurance Date Sequence Insurance Name Policy Number Policy Finch Covered Member ID Finch Member ID Guarantor Name 01/18/2023 1 [facility] (MEDICARE REPLACEMENT/A DVANTAGE - HMO) [id number] Arabella Zamora [id number] Arabella Zamora Notes Date Note Type Note [...] mg/dLCr normalLFT normal Marilee Olivas MD [address], [place], [address], [place] [facility] [employer] 12/12/2022 16:26:30 3 text/html 66 yo female comes in for prolia injection in management of postmenopausal osteoporosis. Marilee Olivas MD [address], [place], [address], [place] [facility] 12/27/2022 17:22:02 OBGyn Episode No OBEpisode recorded.
== END 2024-12-31 14:02 | disposition home or self-care (01) ==
LOC: ANHIMG 14:06
PROVIDERS: PCP Nurse Practitioner; Visit Provider Internal Medicine
DX: M85.89 Other specified disorders of bone density and structure, multiple sites (principal); M81.0 Age-related osteoporosis without current pathological fracture
CPT/HCPCS: 77080

== ENCOUNTER 2025-04-25 08:25 | Emergency (ER) | payer MEDICARE, SELFPAY ==
--- NOTE | ~2025-04-25 | XR_ITS ---
Examination: XR chest 2V Clinical History: cough, wheeze x1 wk. Hx COPD Comparison: 12/18/2024 Technique: PA and Lateral Findings: Cardiomediastinal silhouette normal size and configuration. Lungs clear. Hyperinflation. No acute bony abnormality. IMPRESSION: 1. No acute cardiopulmonary findings. Reviewed, dictated and finalized at location R.
[2025-04-25 08:38] VITALS: BP 137/83; PULSE 72; RESP 16; TEMP 36.3; O2SAT 95
--- NOTE | 2025-04-25 08:56 | ED_ITS ---
HPI - URI/Sore Throat General Chief Complaint: Upper Respiratory Infection Stated Complaint: SINUS Time Seen by Provider: 04/25/25 08:46 Source: patient and RN notes reviewed Mode of arrival: ambulatory Limitations: no limitations History of Present Illness HPI Narrative: 69-year-old female patient presents today complaining of productive cough, nasal congestion, rhinorrhea, wheezing x1 week. Cough is worse at night. Denies fever, shortness of breath or throat. She has taken a few doses of DayQuil in last few days, which did provide some relief. Negative home COVID and flu test 5 days ago. History of COPD for which she has a rescue inhaler. She has used her rescue inhaler a few times in the last week. Related Data Home Medications ?Medication ?Instructions ?Recorded ?Confirmed ?Last Taken ?Type denosumab 60 mg/mL subcutaneous 60 mg subcut [id number] 03/15/23 04/25/25 Unknown History syringe (Prolia) calcium carbonate 1,200 mg PO BID 12/18/2407/19 Unknown History Allergies Allergy/AdvReac Type Severity Reaction Status Date / Time Iodinated Contrast Media Allergy Mild Hives Verified 04/25/25 08:40 [facility] Past Medical History Medical History Squamous cell carcinoma, arm Primary hyperparathyroidism Age-related osteoporosis without current pathological fracture Alendronate started 10/18/17 Cyst (~1971) Hypothyroidism, unspecified Surgical History Surgical History History of lumpectomy (~01/2010) History of biopsy of bladder (~1972) H/O colonoscopy (~12/2015) H/O breast biopsy (~1981) Family History Family History Mother Family history of malignant melanoma Patient's mother is , Onset Age: 68 Sibling Acute myocardial infarction, Onset Age: 59 Family history of cardiovascular disease Hypertension Family history of elevated blood lipids Family history of coronary artery disease Grandparent Carcinoma of colon Family history of coronary artery disease Father Family history of malignant neoplasm of kidney Social History Social History Years smoked: 40 Smoking status: Current every day smoker Tobacco type: cigarettes Alcohol intake: never Substance use: never Substance use type: does not use Lack of Transportation: No Lack of Food: Never True Current Housing: I Have Housing Concerned About Future Housing: No Difficulty Paying Gas/Electric Bills: No Difficulty Paying for Meds: No Currently Unemployed: No Education: Bachelor's Degree Difficulty w/ Childcare or Family Care: No Comments At time of signature, I have reviewed and agree with nursing past medical, surgical, social and family history unless otherwise noted. Please see nursing chart for further information. There is no relevant family history pertinent to the presenting complaint Exam Narrative: GENERAL: Well-appearing, well-nourished, and in no acute distress. HEAD: Normocephalic, atraumatic. EYES: EOMI. No redness or drainage. Conjunctivae normal. ENT: Mucous membranes pink and moist. Nares mildly congested. No rhinorrhea. TMs normal bilaterally. Throat normal. Uvula midline. NECK: Normal AROM. Supple. No lymphadenopathy. CHEST: No respiratory distress. Inspiratory and expiratory wheezing. HEART: Regular rate and rhythm. No murmur appreciated. EXTREMITIES: Normal range of motion. No edema. SKIN: Warm, dry, no rash. Capillary refill normal. Normal skin turgor. NEURO: No focal deficits. Alert and oriented x3. Gait steady. PSYCH: Normal affect. No signs of depression or anxiety. Course Course Level of Care: Express Care Visit Vital Signs Vital signs: Vital Signs Temperature 97.4 F L 04/25/25 08:38 Pulse Rate 72 04/25/25 08:38 Respiratory Rate 16 04/25/25 08:38 Blood Pressure 137/83 04/25/25 08:38 Pulse Oximetry 95 04/25/25 08:38 Temperature 97.4 F L 04/25/25 08:38 Pulse Rate 74 04/25/25 09:22 Respiratory Rate 16 04/25/25 09:22 Blood Pressure 137/83 04/25/25 08:38 Pulse Oximetry 97 04/25/25 09:22 Reviewed MDM - URI/Sore Throat MDM Narrative Medical decision making narrative: 69-year-old female patient presents today complaining of productive cough, nasal congestion, rhinorrhea, wheezing x1 week. Cough is worse at night. Denies fever, shortness of breath or throat. She has taken a few doses of DayQuil in last few days, which did provide some relief. Negative home COVID and flu test 5 days ago. History of COPD for which she has a rescue inhaler. She has used her rescue inhaler a few times in the last week. Upon exam, patient has some mild nasal congestion with inspiratory and expiratory wheezing throughout. Chest x-ray is negative for pneumonia. DuoNeb administered, and wheezing has significantly improved after the treatment. Patient states she is feeling much better. Patient's symptoms are likely due to viral illness exacerbating her COPD. Patient will be prescribed a course of prednisone and Tessalon Perles for her symptoms. She has been instructed to use her albuterol inhaler at home more frequently to help with her cough and wheezing. Patient agrees with plan. Vital signs stable. Anticipatory guidance and ED precautions given. Differential Diagnosis Differential diagnosis: Likely upper respiratory infection, sinusitis, viral infection and other (COPD exacerbation, pneumonia) Imaging Data Radiologist's impression: ITS Impressions Chest X-Ray 04/25/25 09:09 IMPRESSION: 1. No acute cardiopulmonary findings. Critical Care Time Critical Care Time Critical Care Time: No Discharge Plan Discharge Clinical Impression: Viral syndrome, COPD exacerbation Patient Disposition: Home Condition: Stable Instructions: COPD (Chronic Obstructive Pulmonary Disease) (DC), Viral Syndrome (ED) Additional Instructions: Your chest x-ray is negative for pneumonia. Your Symptoms are likely due to a viral illness, which is not treated with antibiotics. Virus symptoms can last for up to 7-10days. Take Tylenol for pain or fever. Start the prednisone and Tessalon Perles and take as prescribed. You may want to use your albuterol inhaler more frequently for your wheezing. Rest and stay hydrated. Follow up with your PCP in 3-5 days if symptoms are not improving. Go to the ER immediately if you develop shortness of breath, difficulty swallowing, or any other concerning symptoms. Patient Language: [place] Prescriptions: New benzonatate 200 mg capsule 200 mg PO TID PRN (Reason: cough) Qty: 20 0RF prednisone 50 mg tablet 50 mg PO DAILY 5 Days Qty: 5 0RF No Action sumatriptan succinate 100 mg tablet 100 mg PO DIRECTED Qty: 9 5RF Rx Instructions: Take 1 tab at onset of headache. If no relief, repeat after 2 hours. Max = 2 tabs in 24 hours. Prolia 60 mg/mL syringe 60 mg subcut [id number] albuterol sulfate 90 mcg/actuation HFA aerosol inhaler 2 inh inhalation Q4H PRN (Reason: shortness of breath or wheezing) Qty: 8.5 6RF cholecalciferol (vitamin D3) 50 mcg (2,000 unit) capsule 50 mcg PO DAILY Qty: 90 0RF calcium carbonate 600 mg calcium (1,500 mg) tablet 1,200 mg PO BID sumatriptan succinate 6 mg/0.5 mL pen injector 6 mg subcut ONCE Qty: 1 0RF Rx Instructions: may repeat dose once in 1 hour if not relieved cyclobenzaprine 10 mg tablet See Rx Instructions .ROUTE .COMPLEX Qty: 60 0RF Dose Instruction: TAKE 1 TABLET BY MOUTH TWICE A DAY NEEDED FOR MUSCLE SPASM Rx Instructions: TAKE 1 TABLET BY MOUTH TWICE A DAY NEEDED FOR MUSCLE SPASM levothyroxine 88 mcg tablet See Rx Instructions .ROUTE .COMPLEX Qty: 90 1RF Dose Instruction: TAKE 1 TABLET BY MOUTH DAILY Rx Instructions: TAKE 1 TABLET BY MOUTH DAILY metoprolol succinate 25 mg tablet extended release 24 hr 25 mg PO DAILY Qty: 90 1RF metoprolol succinate 25 mg tablet extended release 24 hr 25 mg PO DAILY Qty: 14 0RF atorvastatin 10 mg tablet See Rx Instructions .ROUTE .COMPLEX Qty: 90 1RF Dose Instruction: TAKE 1 TABLET BY MOUTH DAILY Rx Instructions: TAKE 1 TABLET BY MOUTH DAILY Follow-up/Referrals: Macy Fregoso DO [Primary Care Provider, Family Practice] Time of Disposition: 09:31
[2025-04-25] MEDS: IPRATROPIUM BR 0.02% INH SOLN 0.5 MG/2.5 ML VIAL INHALATION (09:05)
[2025-04-25] MEDS: ALBUTEROL SULFATE NEB 2.5 MG/3 ML INH INHALATION (09:05)
[2025-04-25 09:11] VITALS: PULSE 72; RESP 18; O2SAT 95
[2025-04-25 09:22] VITALS: PULSE 74; RESP 16; O2SAT 97
== END 2025-04-25 09:37 | disposition home or self-care (01) ==
PROVIDERS: Emergency Provider Nurse Practitioner; PCP Family Medicine
DX: B34.9 Viral infection, unspecified (principal); J44.1 Chronic obstructive pulmonary disease with (acute) exacerbation; F17.210 Nicotine dependence, cigarettes, uncomplicated; E03.9 Hypothyroidism, unspecified; E21.3 Hyperparathyroidism, unspecified; M81.0 Age-related osteoporosis without current pathological fracture; Z85.828 Personal history of other malignant neoplasm of skin
CPT/HCPCS: 71046; 94640; 99213; G0463